=== PATIENT | male | born 1935 | race Caucasian/White ===

== ENCOUNTER 2016-09-26 08:35 | Day surgery (SDC) | payer OTHER ==
[2016-09-26] MEDS ORDERED: BACITRACIN IRRIGATION/NS 50,000 UNITS/1,000 ML BTL IRR ONE (08:38)
[2016-09-26] MEDS ORDERED: DIAZEPAM 5 MG TAB PO ONE (08:38)
[2016-09-26] MEDS ORDERED: ceFAZolin 2 GM/DEXTROSE 100 ML IV ONE (08:38)
[2016-09-26] MEDS ORDERED: NS 1,000 ML IV ONE (08:38)
[2016-09-26] MEDS ORDERED: diphenhydrAMINE 25 MG CAP PO ONE (08:38)
--- NOTE | 2016-09-26 08:59 | CPEKG ---
Heart Rate: 92 RR Interval: 652 QRSD Interval: 158 QT Interval: 432 QTC Interval: 535 QRS [place]: -78 T Wave [place]: 102 EKG Severity - ABNORMAL ECG - EKG Impression: AFIB/FLUTTER AND VENTRICULAR-PACED RHYTHM Electronically Signed By: Robert Carrion 26-Sep-2016 10:52:40
[2016-09-26 09:13] LABS: % IMMATURE GRANULYOCYTES 0.5 % (0.0-1.1); ABSOLUTE IMMATURE GRANULOCYTES 0.03 10^3/uL (0.00-0.10); ADD DIFF? NO; ADD MORPH? NO; ADD SCAN? NO; ATYPICAL LYMPHOCYTE FLAG 10 (0-99); FRAGMENT RBC FLAG 0 (0-99); HEMATOCRIT 40.7 % (40.0-51.0); HEMOGLOBIN 13.7 g/dL (13.7-17.5); LEFT SHIFT FLG 0 (0-99); LIPEMIA HEMOLYSIS FLAG 80 (0-99); MEAN CELL HEMOGLOBIN 36.2 pg (27.9-34.1); MEAN CELL HEMOGLOBIN CONCENTR. 33.7 g/dL (32.4-36.7); MEAN CELL VOLUME 107.7 fL (81.5-99.8); PLATELET CLUMPS FLAG 0 (0-99); PLATELET COUNT 130 10^3/uL (150-400); RED BLOOD CELL COUNT 3.78 10^6/uL (4.40-6.38); RED CELL DISTRIBUTION WIDTH 13.7 % (11.5-15.2)
[2016-09-26 09:24] LABS: INR 2.04 (0.83-1.16); PROTIME(PATIENT) 23.2 SEC (12.0-15.0)
[2016-09-26] MEDS ORDERED: LIDOCAINE 1% 30 ML SDV ONE ×2 (09:35→09:40)
[2016-09-26] MEDS ORDERED: fentaNYL 100 MCG/2 ML INJ ONE (09:36)
[2016-09-26] MEDS ORDERED: BUPIVACAINE 0.5% 30 ML SDV ONE (09:36)
[2016-09-26] MEDS ORDERED: MIDAZOLAM 2 MG/2 ML VIAL ONE (09:36)
[2016-09-26 09:41] LABS: ANION GAP 9 mEq/L (8-16); CALCIUM 9.3 mg/dL (8.5-10.4); CARBON DIOXIDE 27 mEq/l (22-31); CHLORIDE 108 mEq/L (97-110); CREATININE 1.4 mg/dL (0.7-1.3); GLOMERULAR FILTRATION RATE 49; GLUCOSE 85 mg/dL (70-100); POTASSIUM 4.4 mEq/L (3.5-5.2); SODIUM 144 mEq/L (134-144)
--- NOTE | 2016-09-26 11:44 | EPPROC ---
Electrophysiology Procedure Note: PROCEDURE PERFORMED: 1. Implantation of an A/V Pacemaker 2. Temporary pacemaker 3. Fluoroscopy PROCEDURE PERFORMED: 1. AV Pacemaker generator change INDICATION: Pacemaker generator at JONATHAN Atrial fibrillation with ventricular escape <30 bpm PROCEDURE NOTE: Patient presented to the cardiac catheterization laboratory in a fasting, postabsorptive state. CCL administered sedation. The left infraclavicular area was prepped and draped in the usual sterile fashion. Lidocaine plus bupivacaine was used for local anesthesia. Using a combination of blunt and sharp dissection and electrocautery, the dissection was carried down to the prepectoral fascia and the existing pacemaker pocket was opened. The pacemaker generator was disconnected from the lead and the lead threshold and impedance were checked. The pacemaker pocket was copiously irrigated with antibiotic solution. The pocket was again inspected for any bleeding. The lead was attached to the pacemaker securely. The pacemaker was inserted into the pocket. The pacemaker pocket was closed in 3 layers with absorbable monocryl sutures and darin. Appropriate dressing was applied. The patient left the cardiac catheterization laboratory in stable condition. Serial Numbers: 1. Device [employer] Etrinsa 8SRT SN [id number] 2. Ventricular Lead Medtronic [id number] Stimulation Thresholds & Impedance Measurements: 1. Ventricular Lead 0.8 V 0.4 ms 809 ohm no R waves Tu Pacing Parameters 1. Pacing mode VVI-CLS 2. Lower rate 70 ppm 3. Upper tracking rate 105 ppm Upper sensor rate 105 ppm Patient Problems: Problems Problem Status Diagnosed Atrial fibrillation and flutter Acute Fracture of neck of femur Acute Hypertension Acute Coronary arteriosclerosis Chronic
== END 2016-09-26 15:30 | disposition home or self-care (01) ==
LOC: FCATH 08:35
PROVIDERS: ATTEND Internal Medicine Cardiovascular Disease
PROC: 0JPT3PZ Removal of Cardiac Rhythm Related Device from Trunk Subcutaneous Tissue and Fascia, Percutaneous Approach (ICD-10-PCS; principal; 2016-09-26)
PROC: 0JH63PZ Insertion of Cardiac Rhythm Related Device into Chest Subcutaneous Tissue and Fascia, Percutaneous Approach (ICD-10-PCS; principal; 2016-09-26)
DX: Z45.010 Encounter for checking and testing of cardiac pacemaker pulse generator [battery] (principal); I48.2 Chronic atrial fibrillation; I48.92 Unspecified atrial flutter; I44.2 Atrioventricular block, complete
CPT/HCPCS: C1786; J0690; J1644; J2250; J3010

== ENCOUNTER → 2017-02-15 | Outpatient (CLI) | payer OTHER | LOC: FIMAGING 12:11 | PROVIDERS: ATTEND Surgery | DX: I65.23 Occlusion and stenosis of bilateral carotid arteries (principal) ==

== ENCOUNTER → 2018-01-23 | Outpatient (CLI) | payer OTHER ==
[~2018-01-23] MED LIST: IOPAMIDOL (ISOVUE-300) 100 ML BTL ONE
== END ==
LOC: FIMAGING 14:51
PROVIDERS: ATTEND Surgery
DX: K62.89 Other specified diseases of anus and rectum (principal); C21.0 Malignant neoplasm of anus, unspecified; K59.00 Constipation, unspecified; K57.30 Diverticulosis of large intestine without perforation or abscess without bleeding; I73.9 Peripheral vascular disease, unspecified; I77.1 Stricture of artery
CPT/HCPCS: 72193; Q9967

== ENCOUNTER 2018-01-24 10:20 | Emergency (ER) | payer OTHER ==
--- NOTE | 2018-01-24 10:40 | CPEKG ---
Heart Rate: 80 RR Interval: 750 QRSD Interval: 160 QT Interval: 456 QTC Interval: 527 QRS Beals: -85 T Wave Beals: 106 EKG Severity - ABNORMAL ECG - EKG Impression: ATRIAL-SENSED VENTRICULAR-PACED COMPLEXES EKG Impression: NONSPECIFIC IVCD WITH LAD EKG Impression: LVH WITH SECONDARY REPOLARIZATION ABNORMALITY Electronically Signed By: Aye Boswell 24-Jan-2018 14:38:41
--- NOTE | 2018-01-24 11:02 | EDPHY ---
H & P Stated Complaint: dizzy x yrs/fell hitting head and l side/no loc/denies neck pain/on coumadi Time Seen by Provider: 01/24/18 10:30 HPI/ROS: CHIEF COMPLAINT: Fall, left-sided rib pain HISTORY OF PRESENT ILLNESS: 82-year-old male with atrial fibrillation on Coumadin presents after a fall with left-sided rib pain. At 0 100 he awoke to go to the bathroom. He stood up and then fell, striking his head against the wall and his left side against the bed frame. He was able to get up unassisted and back into bed. He continues to have moderate left-sided chest pain, that increases with inspiration. REVIEW OF SYSTEMS: complete 10 point ROS negative except as noted in the HPI - Personal History Current Tetanus Diphtheria and Acellular Pertussis (TDAP): Yes Tetanus Vaccine Date: < 10 YEARS - Medical/Surgical History Hx Asthma: No Hx Chronic Respiratory Disease: Yes Hx Diabetes: No Hx Cardiac Disease: Yes Hx Renal Disease: No Hx Cirrhosis: No Hx Alcoholism: No Hx HIV/AIDS: No Hx Splenectomy or Spleen Trauma: No Other PMH: Afib, Hx of DVT, Hx of bypass (2002), implanted pacer, HTN, COPD. Hx of prostate CA in 2000, glaucoma, cataract sx, broken hip/replacement August 2013, anal cancer , syncopal episodes - Social History Smoking Status: Former smoker - Physical Exam Exam: General Appearance: Alert, pleasant Head: No scalp swelling or tenderness Eyes: No conjunctival erythema, PERRLA, EOMI ENT, Mouth: no oral trauma, no bony tenderness Neck: Nontender, range of motion without pain Respiratory: Normal inspection, left lateral chest wall tenderness, lungs clear bilaterally Cardiovascular: Regular rate and rhythm Abdomen: Abdomen is soft and nontender Skin: Skin tear left elbow Back: No midline T/L/S tenderness Extremities: Pelvis is stable and nontender; no extremity tenderness or deformity Neurological: A&Ox3, normal motor function, normal sensory exam, cranial nerves intact Psychiatric: Mood and affect normal Constitutional: Initial Vital Signs Temperature (C) 36.4 C 01/24/18 10:24 Heart Rate 79 01/24/18 10:24 Respiratory Rate 18 01/24/18 10:24 Blood Pressure 131/66 H 01/24/18 10:24 O2 Sat (%) 100 01/24/18 10:24 O2 Delivery Mode Room Air Allergies/Adverse Reactions: No Known Allergies Allergy (Verified 01/24/18 10:21) Home Medications: Medication Instructions Recorded Aspirin [Aspirin 81mg (*)] 81 mg PO DAILY 09/11/13 Cholecalciferol Vit D3 [Vitamin D3 1,000 units PO DAILY 09/11/13 (*)] Metoprolol Tartrate [Lopressor 25 25 mg PO BID 09/11/13 mg (*)] Sertraline HCl [Zoloft 25mg (*)] 25 mg PO DAILY 09/11/13 Simvastatin [Zocor 20 mg] 10 mg PO Q2D 09/11/13 Simvastatin [Zocor 20 mg] 20 mg PO Q2D 09/11/13 Bimatoprost 0.01% [Lumigan 0.01% 1 drops EACHEYE HS 06/27/14 (*)] Benazepril HCl [Lotensin (*)] 5 mg PO DAILY 08/11/14 Dorzolamide/Timolol [Cosopt (*)] 1 drops EACHEYE BID 08/11/14 Warfarin Sodium [Coumadin 2MG (*)] 2 mg PO SUMOTUWEFRSA@209902/08/15 Warfarin Sodium [Coumadin 4MG (*)] 4 mg PO TH@209902/08/15 Furosemide [Lasix 20 MG (*)] 10 mg PO Q2D 02/17/15 Furosemide [Lasix 20 MG (*)] 20 mg PO Q2D 02/17/15 Herbals/Supplements -Info Only 1 ea PO DAILY 02/17/15 Albuterol [Ventolin Hfa Inhaler] 2 puffs IH QID PRN #1 mdi 07/03/16 Ondansetron Odt [Zofran Odt] 4 mg PO Q4PRN PRN #20 tab 07/03/16 Medical Decision Making - Diagnostics EKG Interpretation: EKG interpreted by me reveals AV paced rhythm, rate 80. Interpretation: abnormal EKG Imaging Results: Chest X-Ray 01/24/18 10:59 Impression: 1. No acute posttraumatic abnormality identified. 2. Chronic cardiomegaly with prior CABG surgery, but without acute decompensation. Head CT 01/24/18 10:59 Impression: 1. No evidence of acute intracranial injury. 2. Stable atrophy and white matter small vessel disease. Findings were communicated by telephone with Dr. ELAYNE RAWLS at 01/24/2018 11: 42 Imaging: Discussed imaging studies w/ call centre supervisor Radiologist, I viewed and interpreted images myself ED Course/Re-evaluation: This pt presents after a probable mechanical fall. CXR: no rib fracture or pneumothorax and CT scan of the brain is unremarkable. Discussion with the patient admission versus discharge home. He has ongoing balance issues and uses a cane to walk. He declines admission and feels that he will be safe at home. Differential Diagnosis: Differential diagnosis includes though it is not limited to fracture, intracranial hemorrhage, pneumothorax, hemothorax, intra-abdominal hemorrhage. - Data Points Laboratory Results: Laboratory Results 01/24/18 10:42 01/24/18 10:42 Medications Given: Discontinued Medications Miscellaneous Medication (Icy Hot Lidocaine/Menthol 4%/1% Patch) 1 patch TD EDNOW ONE Stop: 01/24/18 12:09 Last Admin: 01/24/18 12:13 Dose: 1 patch Departure - Departure Disposition: Home, Routine, Self-Care Clinical Impression: Left rib fracture Qualifiers: Encounter type: initial encounter Rib fracture type: single rib Fracture type: closed Qualified Code(s): S22.32XA - Fracture of one rib, left side, initial encounter for closed fracture Condition: Good Instructions: Rib Fracture (ED) Additional Instructions: Your chest x-ray is normal. I suspect that you have a rib fracture. Take Tylenol 650 mg every 4 hr as needed for pain. You may use a lidocaine patch for pain. Use the incentive spirometer as directed. Referrals: Anen Espinoza MD [Primary Care Provider] - 2-3 days without fail
[2018-01-24 11:22] LABS: INR 2.71 (0.83-1.16); PROTIME(PATIENT) 28.7 SEC (12.0-15.0)
[2018-01-24 11:23] LABS: PLATELET COUNT 139 10^3/uL (150-400)
[2018-01-24 11:37] VITALS: BP 134/94
[2018-01-24] MEDS ORDERED: LIDOCAINE 4%/MENTHOL 1% PATCH TD ONE (12:08)
--- NOTE | 2018-01-24 14:03 | ASMTCMCOM ---
CM Note CM Note Notes: Met with patient briefly prior to discharge from ER today. Patient lives independently in affordable housing in [facility] and is socially active. He has a history of syncopal episodes and falls, and is anticoagulated with a pacemaker. He is no longer driving and has VIA available at his residence for transportation needs. I discussed possible support from [facility] and patient is receptive to this. I have called Joce at [facility] who will reach out to patient and determine what resources may be beneficial and available to patient. I have alerted patient's PCP, Anne Parkinson of ER visit as well Date Signed: 01/24/2018 02:01 PM Electronically Signed By:Adina Avila RN
[2018-01-24] MEDS ORDERED: PATCH REMOVAL 1 EA PATCH TD SCH (21:00)
== END 2018-01-24 12:30 | disposition home or self-care (01) ==
DX: S22.32XA Fracture of one rib, left side, initial encounter for closed fracture (principal); I10 Essential (primary) hypertension; J44.9 Chronic obstructive pulmonary disease, unspecified; Z85.46 Personal history of malignant neoplasm of prostate; Z87.891 Personal history of nicotine dependence; Z79.82 Long term (current) use of aspirin; Z79.01 Long term (current) use of anticoagulants; W01.198A Fall on same level from slipping, tripping and stumbling with subsequent striking against other object, initial encounter

== ENCOUNTER 2018-02-16 07:38 | Day surgery (SDC) | payer OTHER ==
--- NOTE | 2018-02-14 16:07 | GHP ---
[f rep st] PREOP HISTORY AND PHYSICAL DATE OF ADMISSION: 02/16/2018 CHIEF COMPLAINT: Hemorrhoids. 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 He developed a rectal mass in November. The bulge santoro and itches. It is more painful when he needs to urinate and radiates anteriorly. The pain is relieved after urination. He denies sharp pain. He denies bleeding. Denies any changes in size. He denies constipation or diarrhea. PAST MEDICAL HISTORY: History of anal cell cancer, aortic aneurysm, infrarenal 2.8 cm in 2011, atrial fibrillation, pacemaker, cardiomyopathy, carotid artery disease, history of prostate cancer, hyperlipidemia, hypertension. PAST SURGICAL HISTORY: Ablation, wide local excision anus, carotid endarterectomy, coronary bypass surgery, hip replacement, pacemaker, tonsillectomy, adenoidectomy. MEDICATIONS: Reviewed. I have asked him to discontinue his warfarin 5 days prior to surgery. ALLERGIES: Guaifenesin, phenylephrine, malaria medications that he received in the [employer], typhoid vaccination. FAMILY HISTORY: Breast cancer, heart disease, hypertension, myelodysplasia, stroke. SOCIAL HISTORY: He quit smoking in 1979. He exercises. REVIEW OF SYSTEMS: 10-point review of systems negative, except per HPI. PHYSICAL EXAMINATION: GENERAL: Pleasant, well-nourished, well-groomed man in no acute distress. HEENT: Normocephalic. No gross hearing deficits. Mucous membranes moist. Pupils equal and round. No scleral icterus. LUNGS: No increased work of breathing. Clear to auscultation bilaterally. CARDIAC: No peripheral edema. Pacer. RECTAL: External rectal exam with a nodular area originating internally and extending externally in the right posterolateral anus. Significant anal stenosis. SKIN: Warm and dry. MUSCULOSKELETAL: Normal gait. Normal nails. PSYCH: Mood and affect normal. NEURO: Grossly intact. IMPRESSION/PLAN: 82-year-old man with history of squamous cell carcinoma of the anus with a new anal mass. He could not get an MRI due to his pacer. He had a CT scan, which showed mild thickening of the anus. No pelvic or perianal adenopathy. There is constipation, radiation seed implants in the prostate gland. The bladder was grossly unremarkable. We will proceed with excising the mass, getting a diagnosis. /[id number]/MODL MTDD
[~2018-02-16 07:38] MED LIST changes: -IOPAMIDOL (ISOVUE-300) 100 ML BTL ONE; +LR 1,000 ML IV ONE; +cefOXitin SODIUM 2 GM in NS 100 ML IV ONE
[2018-02-16] MEDS ORDERED: BUPIVACAINE/EPI 0.5% 30 ML SDV ONE (08:10)
--- NOTE | 2018-02-16 08:33 | PDHPUP ---
History & Physical Update H&P update statement: This history and physical update is based on an assessment of the patient which was completed after admission or registration (within 24 hours), but prior to the surgery/procedure. H&P update: H&P reviewed & patient examined, no change in patient's condition since H&P completed
[2018-02-16] MEDS ORDERED: MIDAZOLAM 2 MG/2 ML VIAL IVP ONE (08:36)
--- NOTE | 2018-02-16 08:39 | PDANEPAE ---
ANE History of Present Illness 82 year old with rectal mass ANE Past Medical History - Cardiovascular History Hx Hypertension: Yes Hx Arrhythmias: Yes Hx Coronary Artery / Peripheral Vascular Disease: Yes Hx CHF / Valvular Disease: No Hx Palpitations: No Cardiovascular History Comment: Afib, CABG, PVD. Aortic aneurysm-being watched. cardiomyopathy. carotid artery disease. EF 35-40% - Pulmonary History Hx COPD: No Hx Asthma/Reactive Airway Disease: No Hx Recent Upper Respiratory Infection: No Hx Oxygen in Use at Home: No Hx Sleep Apnea: Yes Sleep Apnea Screening Result - Last Documented: Positive Pulmonary History Comment: HX sleep apnea. Can't use CPAP. pt states intermittent SOB uses inhaler - Neurologic History Hx Cerebrovascular Accident: No Hx Seizures: No Hx Dementia: No Neurologic History Comment: hx of intracerebral hemorrage - Endocrine History Hx Diabetes: No - Renal History Hx Renal Disorders: No Renal History Comment: Prostatate CA. - Liver History Hx Hepatic Disorders: No - Neurological & Psychiatric Hx Hx Neurological and Psychiatric Disorders: Yes Neurological / Psychiatric History Comment: balance issues. depression,anxiety - Cancer History Hx Cancer: Yes Cancer History Comment: Prostate-radiation seeds 1999. Basal cell top of head- removed. - Congenital Disorder History Hx Congenital Disorders: No - GI History Hx Gastrointestinal Disorders: Yes Gastrointestinal History Comment: 07/04-rectal bleeding. Has mass. - Other Health History Other Health History: Macular degeneration-on meds. Mild arthritis in joints. ABX for dental procedures due to artificial hip. Bruise easily due to warfarin. thrombocytopenia. glaucoma - Chronic Pain History Chronic Pain: No - Surgical History Prior Surgeries: 09/03-R hip plasty. 2004-remove DVT R leg. Bilateral cataracts. 2002-4 vessel CABG. 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: [employer] Pacemaker Model: Etrinsa 8SR-T Pacemaker Mode: VVI-CLS Date Pacemaker Last Checked: 01/25/18 ANE Patient History - Allergies Allergies/Adverse Reactions: No Known Allergies Allergy (Verified 02/13/18 10:52) - Home Medications Home medications: home medication list seen and reviewed Home Medications: Albuterol [Proventil Inhaler HFA (*)] 1 - 2 puffs IH Q4H PRN 02/13/18 [Last Taken 01/19/18] Aspirin [Aspirin 81mg (*)] 81 mg PO DAILY 02/13/18 [Last Taken 02/11/18] Benazepril HCl 5 mg PO DAILY 02/13/18 [Last Taken 02/15/18] Bimatoprost 0.01% [Lumigan 0.01% (*)] 1 drops EACHEYE HS 02/13/18 [Last Taken 06:00] C/E/Zn/Cu/OM3/DHA/EPA/LUT/ZEAX [Preservision Areds 2 Softgel] 1 each PO DAILY [Last Taken Unknown] Cholecalciferol Vit D3 [Vitamin D3 (*)] 1,000 units PO DAILY 02/13/18 [Last Taken 02/11/18] Dorzolamide/Timolol [Cosopt (*)] 1 drops EACHEYE BID 02/13/18 [Last Taken 06:00] Furosemide [Lasix 20 MG (*)] 20 mg PO DAILY 02/13/18 [Last Taken 02/15/18] Melatonin [Melatonin 3 MG (*)] 3 mg PO HS 02/13/18 [Last Taken 02/14/18] Metoprolol Tartrate [Lopressor 25 mg (*)] 25 mg PO DAILY 02/13/18 [Last Taken 20:00] Sertraline HCl [Zoloft 25mg (*)] 25 mg PO DAILY 02/13/18 [Last Taken 02/16/18 05 :00] Simvastatin [Zocor] 10 mg PO DAILY 02/13/18 [Last Taken 02/15/18] Simvastatin [Zocor] 10 mg PO Q2D 02/13/18 [Last Taken 02/15/18] Warfarin Sodium [Coumadin 2MG (*)] 2 mg PO SUMOTUWEFRSA@02/13/18 [Last Taken 02/11/18] Warfarin Sodium [Coumadin 2MG (*)] 4 mg PO TH@16 02/13/18 [Last Taken 02/11/18] - NPO status NPO Since - Liquids (Date): 02/15/18 NPO Since - Liquids (Time): 17:00 NPO Since - Solids (Date): 02/15/18 NPO Since - Solids (Time): 17:00 - Smoking Hx Smoking Status: Former smoker - Alcohol Use Alcohol Use: Occasionally - Family Anes Hx Family Hx Anesthesia Complications: none ANE Labs/Vital Signs - Vital Signs Blood Pressure: 157/89 Heart Rate: 85 Respiratory Rate: 16 O2 Sat (%): 96 Height: 171.45 cm Weight: 72.575 kg ANE Physical Exam - Airway Neck exam: FROM Mallampati Score: Class 1 Mouth exam: normal dental/mouth exam - Pulmonary Pulmonary: no respiratory distress, clear to auscultation - Cardiovascular Cardiovascular: regular rate and rhythym - ASA Status ASA Status: II ANE Anesthesia Plan Anesthesia Plan: GA w LMA
[2018-02-16] MEDS ORDERED: MIDAZOLAM 2 MG/2 ML VIAL ONE (08:45)
[2018-02-16 08:49] LABS: INR 1.95 (0.83-1.16); PROTIME(PATIENT) 22.3 SEC (12.0-15.0)
[2018-02-16] MEDS ORDERED: PROPOFOL 200 MG/20 ML VIAL ONE (08:53)
[2018-02-16] MEDS ORDERED: fentaNYL 100 MCG/2 ML INJ ONE (08:53)
[2018-02-16] MEDS ORDERED: LIDOCAINE 2% 5 ML SDV ONE (08:53)
[2018-02-16] MEDS ORDERED: THROMBIN (BOVINE) 5,000 UNIT VIAL TP ONE (09:02)
[2018-02-16] MEDS ORDERED: PROMETHAZINE HCL 25 MG/ML INJ IVP PRN (09:28)
[2018-02-16] MEDS ORDERED: NALOXONE HCL 0.4 MG/ML INJ IVP PRN (09:28)
[2018-02-16] MEDS ORDERED: ONDANSETRON 4 MG/2 ML VIAL IVP PRN (09:28)
[2018-02-16] MEDS ORDERED: fentaNYL 100 MCG/2 ML INJ IVP PRN (09:28)
--- NOTE | 2018-02-16 09:35 | POSTOPPROG ---
Post Op Note Date of Operation: 02/16/18 Surgeon: Leanna Milligan Anesthesiologist: warm Anesthesia: GET(General Endotracheal) Pre-op Diagnosis: anal mass with history of anal cancer Post-op Diagnosis: same Indication: 82 yo with anal mass and history of anal cancer Procedure: eua and excision of anal mass Findings: 5x2 cm mass Inf/Abcess present in the surg proc area at time of surgery?: No Specimen(s): anal mass
--- NOTE | 2018-02-16 09:50 | POSTANESTH ---
Post Anesthetic Evaluation Cardiovascular Status: Normal, Stable Respiratory Status: Normal, Stable Level of Consciousness/Mental Status: Mildly Sleepy, Arousable Pain Control: Adequate, Prn Tx Ordered Nausea/Vomiting Control: Adequate, Prn Tx Ordered Complications Possibly Related to Anesthesia: None Noted
--- NOTE | 2018-02-16 10:00 | GOP ---
[f rep st] OPERATIVE REPORT DATE OF OPERATION: 02/16/2018 SURGEON: Leanna Milligan MD ANESTHESIOLOGIST: Ron Pride MD/General. PREOPERATIVE DIAGNOSIS: Anal mass with history of anal cancer. POSTOPERATIVE DIAGNOSIS: Anal mass with history of anal cancer. PROCEDURE PERFORMED: Exam under anesthesia and excision of anal mass, 5 x 3 cm. FINDINGS: Ulceration along the right posterolateral wall with firm nodularity. SPECIMENS: Anal mass in fragments. ESTIMATED BLOOD LOSS: 5 cc. INDICATIONS: The patient is an 82-year-old man with history of anal cancer status post excision and radiation. He presented with a new bleeding mass. He had also stenosis. He is on warfarin. Due to the extent of the lesion I decided to proceed in the operating room. DESCRIPTION OF PROCEDURE: Patient was brought into the operating room, placed supine on the table and general anesthesia was administered. His bottom was prepped and draped in the usual sterile fashion. He was placed in a lithotomy position. I infiltrated the area with 0.5% Marcaine with epinephrine prior to making incisions. I performed my exam under anesthesia. The lesion was at least 5 cm into the anal canal. With electrocautery I excised this lesion. It was very friable. It came out in fragments. Hemostasis achieved. I closed the defect with 3-0 Vicryl. ABD mesh pants applied. He was taken out of lithotomy position, awakened in the operating room, extubated, transferred to PACU in stable condition. /[id number]/MODL MTDD
[2018-02-16 11:51] VITALS: BP 150/77
--- NOTE | 2018-03-13 18:01 | GDS ---
[f rep st] DISCHARGE SUMMARY The patient is an 82-year-old male with a history of anal cancer, presented for exam under anesthesia to assess rectal bleeding, was bridged. Found a mass 5 cm into rectal canal, resected mass. The jabier antonieta was then sent to PACU and monitored before discharge, left in a wheelchair with family. Diet a s tolerates. Pain controlled. /[id number]/MODL
== END 2018-02-16 12:11 | disposition home or self-care (01) ==
LOC: F3N 07:38 → FSGY 07:38 → UNDOADMOB 07:38 → EDSTATUS 08:30 → FSGY 12:11 → UNDODISOB 12:11
PROVIDERS: ATTEND Surgery
PROC: 0DBQ7ZX Excision of Anus, Via Natural or Artificial Opening, Diagnostic (ICD-10-PCS; principal; 2018-02-16 08:30)
DX: C21.1 Malignant neoplasm of anal canal (principal); I48.91 Unspecified atrial fibrillation
CPT/HCPCS: 46922; 88305; J0694; J2250; J2704; J3010

== ENCOUNTER → 2018-05-09 | Outpatient (CLI) | payer OTHER | LOC: BHFA 08:30 | PROVIDERS: ATTEND Internal Medicine Cardiovascular Disease | DX: Z01.818 Encounter for other preprocedural examination (principal); I25.10 Atherosclerotic heart disease of native coronary artery without angina pectoris | CPT/HCPCS: 78452; 93017; A9500; J2785 ==

== ENCOUNTER 2018-06-01 05:48 | Inpatient (IN) | payer OTHER ==
--- NOTE | 2018-05-28 09:30 | GHP ---
DATE OF ADMISSION: 06/01/2018 DATE OF SURGERY: 06/01/2018 PREOPERATIVE DIAGNOSIS: Recurrent anal cancer. HISTORY OF PRESENT ILLNESS: The patient is an 83-year-old man with a history of anal cancer, status post chemo and radiation. He underwent excision of an anal mass over the summer, which showed squamo us cell carcinoma at multiple margins. He had a PET-CT on 03/12/2018, which showed a left adrenal ad enoma unchanged since 2014, esophagitis versus reflux in the distal esophagus, subacute rib fractures of the posterior left 4th through 11th ribs are also indicated. No evidence of metastatic disease i n the chest, abdomen, or pelvic nodes. At this time, he presents for APR. PAST MEDICAL HISTORY: Anal cancer, aortic aneurysm, arterial embolism to the leg, atrial fibrillatio n on Coumadin, pacemaker for syncope, cardiomyopathy, carotid artery disease, coronary artery disease , history of prostate cancer, hyperlipidemia, hypertension, macular degeneration, thrombocytopenia, v ertebral artery disease. PAST SURGICAL HISTORY: Cardiac ablation for atrial fibrillation. Resection of anal cancer 2013, car otid endarterectomy, 2014, coronary bypass surgery, hip replacement, pacemaker placement, tonsillecto my, and adenoidectomy. ALLERGIES: Guaifenesin, quinine, typhoid vaccine. FAMILY HISTORY: Significant for stroke, heart disease, hypertension, breast cancer, myelodysplasia. SOCIAL HISTORY: He reports drinking alcohol 2 times per week. 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 He is a former smoker. No recreational drug use. REVIEW OF SYSTEMS: Ten-point review of systems negative aside from HPI. PHYSICAL EXAMINATION: GENERAL: A pleasant, well-developed, well-nourished man in no acute distress. HEENT: Normocephalic, atraumatic. No hearing deficits. Pupils equal and round. No scleral icter us. Mucous membranes moist. NECK: Trachea midline. RESPIRATORY: No increased work of breathing. Clear to auscultation bilaterally. CARDIOVASCULAR: No peripheral edema. ABDOMEN: Soft, nondisten ded, nontender. PSYCHIATRIC: Mood and affect normal. NEUROLOGIC: Grossly intact. IMPRESSION AND PLAN: An 83-year-old man with recurrent anal cancer, now presenting for APR. Discuss ed permanent colostomy. We discussed risks of surgery, including but not limited to, heart attack, s troke, blood clots, or . We discussed risks of infection, bleeding, damage to surrounding struc tures, anastomotic leak, or delayed wound healing. He understands risks and would like to proceed. It will be an inpatient procedure. He will receive cefoxitin. I will call the operating room. /[id number]/MODL
[2018-06-01] MEDS ORDERED: cefOXitin SODIUM 2 GM in NS 100 ML IV ONE (06:00)
[2018-06-01] MEDS ORDERED: LR 1,000 ML IV ONE (06:07)
--- NOTE | 2018-06-01 07:08 | POSTANESTH ---
Post Anesthetic Evaluation Cardiovascular Status: Normal, Stable Respiratory Status: Normal, Stable Level of Consciousness/Mental Status: Can Participate in Eval, Moderately Sleepy Pain Control: Adequate, Prn Tx Ordered Nausea/Vomiting Control: Adequate, Prn Tx Ordered Complications Possibly Related to Anesthesia: None Noted
[2018-06-01 07:09] LABS: INR 1.59 (0.83-1.16); PROTIME(PATIENT) 19.1 SEC (12.0-15.0)
[2018-06-01] MEDS ORDERED: ALBUTEROL 3 ML DEYVIAL IH ONE (07:09)
[2018-06-01] MEDS ORDERED: ALBUTEROL 3 ML DEYVIAL ONE (07:11)
--- NOTE | 2018-06-01 07:12 | PDANEPAE ---
ANE History of Present Illness 83 yo male with anal cancer for abdominoperineal resection. ANE Past Medical History - Cardiovascular History Hx Hypertension: Yes Hx Arrhythmias: Yes Hx Chest Pain: No Hx Coronary Artery / Peripheral Vascular Disease: Yes Hx CHF / Valvular Disease: No Hx Palpitations: No Cardiovascular History Comment: aortic aneurysm. afib - chronic. pacemaker for complete heart block. cardiomyopathy. CAD s/p CABG in 2000. htn. hyperlipidemia. pvd. hx of cabg. followed by [facility] - Pulmonary History Hx COPD: No Hx Asthma/Reactive Airway Disease: Yes Hx Recent Upper Respiratory Infection: No Hx Oxygen in Use at Home: No Hx Sleep Apnea: Yes Sleep Apnea Screening Result - Last Documented: Positive Pulmonary History Comment: hx of ЕЛЕНА, pt denies dx or using cpap. no ER visits for RAD, uses inhaler 1-2/d - Neurologic History Hx Cerebrovascular Accident: No Hx Seizures: No Hx Dementia: No Neurologic History Comment: hx of intracerebral hemorrage - Endocrine History Hx Diabetes: No Obesity: no - Renal History Hx Renal Disorders: No Renal History Comment: h/o Prostate CA - Liver History Hx Hepatic Disorders: No - Neurological & Psychiatric Hx Hx Neurological and Psychiatric Disorders: Yes Neurological / Psychiatric History Comment: depression. anxiety - Cancer History Hx Cancer: Yes Cancer History Comment: rectal ca. Prostate-radiation seeds 1999. Basal cell top of head-removed - Congenital Disorder History Hx Congenital Disorders: No - GI History Hx Gastrointestinal Disorders: Yes Gastrointestinal History Comment: rectal CA - Other Health History Other Health History: macular degeneration. wears glasses - Chronic Pain History Chronic Pain: No - Surgical History Prior Surgeries: 02/16/18 rectal mass excision with Srini. 02/17/15 left CEA with Dayron. 06/27/14 rectal exam with excision of anal CA with Srini. right TANK with Shoshana. 2004-remove DVT R leg. 11/30/09 EP study/ ablation with Murali. Bilateral cataracts. 2002-4 vessel CABG ANE Review of Systems Review of Systems: - Exercise capacity METS (RN): 3 METS - Systems Constitutional: Reports: other (fatigue over past few months) - Pacemaker Pacemaker Type: Permanent Pacer/Defib Pacemaker Tubular Stock Glass Bulb Machine Former: [employer] Pacemaker Model: Etrinsa 8 SR-T Pacemaker Mode: VVI-CLS Pacemaker Set Rate: 70 Date Pacemaker Last Checked: 05/04/18 ANE Patient History - Allergies Allergies/Adverse Reactions: No Known Allergies Allergy (Verified 05/28/18 17:00) - Home Medications Home Medications: Albuterol [Proventil Inhaler HFA (*)] 1 - 2 puffs IH Q4H PRN 02/13/18 [Last Taken 05/31/18] Aspirin [Aspirin 81mg (*)] 81 mg PO DAILY 02/13/18 [Last Taken 05/31/18] Benazepril HCl 5 mg PO DAILY 02/13/18 [Last Taken 05/31/18] Bimatoprost 0.01% [Lumigan 0.01% (*)] 1 drops EACHEYE HS 02/13/18 [Last Taken ] C/E/Zn/Cu/OM3/DHA/EPA/LUT/ZEAX [Preservision Areds 2 Softgel] 1 each PO DAILY [Last Taken 05/31/18] Cholecalciferol Vit D3 [Vitamin D3 (*)] 1,000 units PO DAILY 02/13/18 [Last Taken 05/31/18] Dorzolamide/Timolol [Cosopt (*)] 1 drops EACHEYE BID 02/13/18 [Last Taken ] Furosemide [Lasix 20 MG (*)] 20 mg PO DAILY 02/13/18 [Last Taken 05/31/18] Metoprolol Tartrate [Lopressor 25 mg (*)] 25 mg PO DAILY 02/13/18 [Last Taken ] Sertraline HCl [Zoloft 25mg (*)] 25 mg PO DAILY 02/13/18 [Last Taken 06/01/18] Simvastatin [Zocor] 10 mg PO Q2D 02/13/18 [Last Taken 05/31/18] Simvastatin [Zocor] 20 mg PO Q2D 02/13/18 [Last Taken 06/01/18] Warfarin Sodium [Coumadin 2MG (*)] 2 mg PO DAILY@1600 02/13/18 [Last Taken 05/28] Melatonin/Pyridoxine [Melatonin 5 mg Tablet] 1 each PO HS 05/18/18 [Last Taken 1 Week Ago ~05/25/18] Simvastatin 10 mg PO Q2D 05/18/18 [Last Taken Unknown] - NPO status NPO Since - Liquids (Date): 05/31/18 NPO Since - Liquids (Time): 20:00 NPO Since - Solids (Date): 05/31/18 NPO Since - Solids (Time): 20:00 - Anes Hx Anes Hx: no prior problems - Smoking Hx Smoking Status: Former smoker - Family Anes Hx Family Anes Hx: neg - N/A Family Hx Anesthesia Complications: none ANE Labs/Vital Signs - Labs - CBC HGB: 13 HCT: 40 Platelet Count: 146 - Labs - BMP Potassium: 4.4 Creatinine: 1.3 - Vital Signs Vital Signs: reviewed preoperatively; see RN documention for details Height: 171.45 cm Weight: 70.307 kg ANE Physical Exam - Airway Neck exam: decreased ROM Mallampati Score: Class 2 - Pulmonary Pulmonary: expiratory wheeze - Cardiovascular Cardiovascular: regular rate and rhythym - ASA Status ASA Status: III ANE Anesthesia Plan Anesthesia Plan: general endotracheal anesthesia Lines/Monitors: additional IV
[2018-06-01] MEDS ORDERED: ROCURONIUM 100 MG/10 ML VIAL ONE (07:25)
[2018-06-01] MEDS ORDERED: LIDOCAINE 0.5% 50 ML SDV ONE ×3 (07:25→10:53)
[2018-06-01] MEDS ORDERED: DEXAMETHASONE 4 MG/ML VIAL ONE (07:25)
[2018-06-01] MEDS ORDERED: PROPOFOL/EMULSION 500 MG/50 ML BOTTLE IV ONE ×4 (07:25→10:51)
[2018-06-01] MEDS ORDERED: fentaNYL 250 MCG/5 ML INJ ONE (07:25)
[2018-06-01] MEDS ORDERED: BUPIVACAINE 0.5% 30 ML SDV ONE (07:51)
--- NOTE | 2018-06-01 09:33 | POSTOPPROG ---
Post Op Note Date of Operation: 06/01/18 Surgeon: Best Merino (# [id number]) Anesthesia: GET(General Endotracheal) Pre-op Diagnosis: Urinary retention, inability to catheterize Post-op Diagnosis: Urinary retention, inability to catheterize Procedure: Urethral dilation under anesthesia, complex urethral catheterization Findings: Probable bladder neck contracture Inf/Abcess present in the surg proc area at time of surgery?: No EBL: Minimal Complications: None
--- NOTE | 2018-06-01 10:29 | GOP ---
DATE OF OPERATION: 06/01/2018 SURGEON: Best Merino MD PREOPERATIVE DIAGNOSIS: Urinary retention, inability to catheterize under anesthesia. POSTOPERATIVE DIAGNOSIS: Urinary retention, inability to catheterize under anesthesia. PROCEDURE PERFORMED: 1. Urethral dilation with filiforms and followers under anesthesia. 2. Complex urethral catheterization. FINDINGS: Urethral stricture disease, probable bladder neck contracture. INDICATIONS: This is an 83-year-old gentleman who is under anesthesia in preparation for a robotically-assisted abdominoperineal resection by Dr. Damian. Attempts to place a Peck catheter intraoperatively under anesthesia were unsuccessful. I was asked to see the patient as a result. According to review of records, it appears the patient has undergone prostate brachytherapy for cancer treatment in the past. There is no additional history available at this time. DESCRIPTION OF PROCEDURE: The patient was already under anesthesia in the low lithotomy position upon my arrival. Dr. Damian was in the process of attempting to place a 14-Nigerian coude tipped catheter, but resistance was encountered and what appeared to be the posterior urethra and possibly bladder neck. I then proceeded to perform urethral dilation with filiforms and followers, starting with a 4-Nigerian straight tip filiform, followed by progressive dilation from 10- Nigerian to 18-Nigerian with followers. I then slowly advanced a 14-Nigerian coude tip catheter and was able to get it into the bladder with some resistance noted in the prostatic urethra and possibly the bladder neck. There was return of clear urine. The catheter was connected to bag drainage. The patient was then turned over to the General Surgery team for the scheduled procedure. DISPOSITION: Status post successful complex urethral catheterization following urethral dilation. The Peck catheter may be removed whenever deemed appropriate by the attending service. /[id number]/MODL MTDD
[2018-06-01] MEDS ORDERED: ALBUTEROL 3 ML DEYVIAL IH PRN (11:58)
[2018-06-01] MEDS ORDERED: PROMETHAZINE HCL 25 MG/ML INJ IVP PRN (11:58)
[2018-06-01] MEDS ORDERED: fentaNYL 100 MCG/2 ML INJ IVP PRN (11:58)
[2018-06-01] MEDS ORDERED: NALOXONE HCL 0.4 MG/ML INJ IVP PRN (11:58)
[2018-06-01] MEDS ORDERED: LR 500 ML IV PRN (11:58)
[2018-06-01] MEDS ORDERED: ONDANSETRON 4 MG/2 ML VIAL ONE (12:03)
--- NOTE | 2018-06-01 12:04 | POSTOPPROG ---
Post Op Note Date of Operation: 06/01/18 Surgeon: Leanna Milligan Cabinet Abrasive Sandblaster: evan Anesthesiologist: azeem Anesthesia: GET(General Endotracheal) Pre-op Diagnosis: recurrent anal ca Post-op Diagnosis: same, diverticulosis Indication: 83yo M with anal ca s/p chemo and radiation with recurrence Procedure: Davinci APR with end colostomy. Findings: diverticulosis. Inf/Abcess present in the surg proc area at time of surgery?: No EBL: 50-100 Complications: none immediately postoperatively Drains: Evens Birch, Wound Vac Specimen(s): rectum and anus
[2018-06-01] MEDS ORDERED: GLYCOPYRROLATE 0.2 MG/1 ML VIAL ONE (12:08)
[2018-06-01] MEDS ORDERED: diphenhydrAMINE 25 MG CAP PO PRN (12:08)
[2018-06-01] MEDS ORDERED: NEOSTIGMINE METHYLSULFATE 5 MG/5 ML SYR ONE (12:08)
[2018-06-01] MEDS ORDERED: ONDANSETRON 4 MG/2 ML VIAL IVP PRN (12:08)
[2018-06-01] MEDS ORDERED: HYDROmorphONE/DILAUDID 1 MG/ML INJ IVP PRN (12:08)
[2018-06-01] MEDS ORDERED: HYDROCODONE/APAP 5/325 TAB PO PRN (12:08)
--- NOTE | 2018-06-01 12:46 | PDMN ---
Medical Necessity Medical necessity: [facility] IP only surgery; cpt 89819 Abdominoperineal Resection
[2018-06-01] MEDS: cefOXitin SODIUM 2 GM in NS 100 ML IV SCH (19:00)
[2018-06-01] MEDS: DORZOLAMIDE 2% EACHEYE SCH (20:27)
[2018-06-01] MEDS: BIMATOPROST 0.01% 2.5 ML OPHT.BTL EACHEYE SCH (20:27)
[2018-06-01] MEDS: EYE EACHEYE SCH (20:27)
[2018-06-01] MEDS: MELATONIN 3 MG TAB PO SCH (20:27)
[2018-06-01] MEDS ORDERED: DORZOLAMIDE/TIMOLOL 10 ML OPHT.BTL EACHEYE SCH (21:00)
[2018-06-02] MEDS: cefOXitin SODIUM 2 GM in NS 100 ML IV SCH (00:55)
[2018-06-02 06:17] LABS: PLATELET COUNT 113 10^3/uL (150-400)
[2018-06-02] MEDS: NS 1,000 ML IV SCH (07:17)
[2018-06-02] MEDS: ACETAMINOPHEN 325 MG TAB PO PRN (09:23)
[2018-06-02] MEDS: PRAVASTATIN SODIUM 10 MG TAB PO SCH ×2 (09:24→18:14)
[2018-06-02] MEDS: METOPROLOL TARTRATE 25 MG TAB PO SCH (09:30)
[2018-06-02] MEDS: EYE EACHEYE SCH ×2 (09:30→19:59)
[2018-06-02] MEDS: DORZOLAMIDE 2% EACHEYE SCH ×2 (09:30→19:59)
[2018-06-02] MEDS: BENAZEPRIL HCL 10 MG TAB PO SCH (09:30)
[2018-06-02] MEDS: SERTRALINE HCL 25 MG TAB PO SCH (10:06)
[2018-06-02] MEDS: HYDROCODONE/APAP 5/325 TAB PO PRN ×2 (12:05→19:57)
--- NOTE | 2018-06-02 12:42 | SOAPPROG ---
SOAP Progress Note Assessment/Plan: Assessment: 83 year old s/p APR for recurrent anal cancer Pain controlled with Tylenol Has gas and stool in appliance Will start clear liquids Atrial Fibrillation Holding Warfarin and monitoring H.H Pacemaker Hyperlipidemia Home statin Hypertension Holding PAWEL and B Aramis due to hypotension Hypotension BP stable. Will monitor Urethral Stricture Appreciate Dr. ahuja assisting with Peck. Will keep Peck about 5 days due to APR. No special cares per Wilber S: Dry mouth and some vision changes. Feels weak O: Lying in bed, good spirits but appears tired CTAB Paced BS present, soft, Incisions cdi Gas and stool in appliance Prevena vac intact Plan: 06/02/18 12:38 Objective: Vital Signs Temp Pulse Resp BP Pulse Ox 36.4 C 90 17 97/41 L 94 06/02/18 08:00 06/02/18 12:00 06/02/18 12:00 06/02/18 12:00 06/02/18 12:00 Laboratory Results 06/02/18 05:46 06/02/18 05:46 06/01/18 06/02/18 06/03/18 05:59 05:59 05:59 Intake Total 2565 Output Total 1120 Balance 1445 PT 19.1 SEC (12.0-15.0) H 06/01/18 06:50 INR 1.59 (0.83-1.16) H 06/01/18 06:50 ICD10 Worksheet Patient Problems: Problems Problem Status Onset Atrial fibrillation and flutter Acute Fracture of neck of femur Acute Hypertension Acute Left rib fracture Acute Coronary arteriosclerosis Chronic
--- NOTE | 2018-06-02 16:26 | ASMTCMCOM ---
CM Note CM Note Notes: CM reviewed pt's chart for d/c planning. Pt is a 83 y/o male with diagnosis of urethral stricture disease and probable bladder neck contracture. He had a urethral catheterization following urethral dialation. When pt was in the ED in January he reported that he lived independently in low income housing and was socailly active. He accepted a referral for [facility]; CM reached out to [facility] and gave pt's contact information. It is unknown whether pt followed through with this. CM to follow. D/C Plan: TBD Date Signed: 06/02/2018 04:25 PM Electronically Signed By:Lola Rosen
[2018-06-02] MEDS: BIMATOPROST 0.01% 2.5 ML OPHT.BTL EACHEYE SCH (19:58)
[2018-06-02] MEDS: MELATONIN 3 MG TAB PO SCH (19:58)
[2018-06-03] MEDS: HYDROCODONE/APAP 5/325 TAB PO PRN ×2 (00:47→05:34)
[2018-06-03 06:40] LABS: PLATELET COUNT 91 10^3/uL (150-400)
[2018-06-03] MEDS ORDERED: NON-FORMULARY NEW DRUG (Simvastatin [Zocor] 20 MG) PO SCH (09:00)
[2018-06-03] MEDS: SERTRALINE HCL 25 MG TAB PO SCH (09:44)
[2018-06-03] MEDS: EYE EACHEYE SCH ×2 (09:45→20:34)
[2018-06-03] MEDS: DORZOLAMIDE 2% EACHEYE SCH ×2 (09:45→20:34)
--- NOTE | 2018-06-03 13:43 | GOP ---
DATE OF OPERATION: 06/01/2018 SURGEON: Leanna Milligan MD SENIOR APPLICATION SOFTWARE ENGINEER: AVIVA Lewis ANESTHESIA: General ANESTHESIOLOGIST: Sarika Whitaker MD PREOPERATIVE DIAGNOSIS: Recurrent anal cancer. POSTOPERATIVE DIAGNOSIS: Recurrent anal cancer. PROCEDURE PERFORMED: Da Alessandra abdominoperineal resection. FINDINGS: Diverticulosis and urethral stricture. SPECIMENS: Rectum and anus. ESTIMATED BLOOD LOSS: 100 cc. INDICATIONS: The patient is an 83-year-old man who has recurrent anal cancer. He has a history of prostate cancer. DESCRIPTION OF PROCEDURE: The patient was brought into the operating room, placed supine on the table, and general anesthesia was administered. His Peck was attempted and also unable to pass a coude catheter. I consulted Dr. Merino who performed dilations and was able to place a Peck. The patient was then placed in a lithotomy position, prepped and draped in the usual sterile fashion. I infiltrated all sites with 0.5% Marcaine prior to making incisions. I made an incision superior and to the right of his umbilicus. I elevated the abdominal wall. I inserted the Veress needle. It passed the hang drop test. His abdomen insufflated easily to a pressure of 15 mmHg. I placed an 8 mm trocar with a camera at this site. Under direct vision, I placed an 12 mm trocar in the right lower quadrant, and two 8 mm trocars in the left lower quadrant, and along the left lateral position. He was placed in the Trendelenburg position. I docked the robot. I moved to the console. I placed a grapter in the most left lateral port. I used the Harmonic and caudier. I retracted his redundant sigmoid colon anteriorly. He had diverticulosis from the sigmoid colon all the way up to the splenic flexure. There were no signs of diverticulitis. I divided the vascular pedicle to the sigmoid colon. I made an incision in the peritoneum and I divided the mesentery. The left ureter was protected. I continued my dissection along the white line of Toldt. I did not need to take down the splenic flexure. I performed posterior dissection of the rectum in the presacral space using the Harmonic until I could see the levator ani muscles. Lateral dissection was performed and care was taken to avoid injury to the ureters, as well as the iliac vessels. The lateral attachments were taken down with the Harmonic. Anterior to the peritoneal reflection was opened up and the dissection continued through Denonvilliers' fascia. Once I could no longer reach with my instruments, we performed a rectal exam and I could easily palpate the finger in the rectum. I placed a stapler in the most lateral port and transected the sigmoid colon. I grasped the proximal end with a laparoscopic grasper. I then placed a 15 round silicone drain toward the pelvis. I undocked the robot. I moved to the bedside. He was placed in lithotomy position. I performed an elliptical incision around the anus. Dissection was continued through the skin and subcutaneous tissues posteriorly. I entered the pelvis anterior to the coccyx and divided the anal coccygeal ligament. The levator muscles were divided laterally with electrocautery. Hemostasis was achieved. Anteriorly, there was 1 area where I breached the colon. This was quickly contained. I then was able to deliver the specimen through the perineal incision. The specimen was passed off the field. Hemostasis was achieved. Irrigation was performed. Clean closure performed, initially performed on the abdomen. I closed the fascia at the 12 mm port site with 0 Vicryl. 4-0 Monocryl and Dermabond applied. Then, 3-0 Vicryl was used to close the pelvic peritoneum and 2-0 nylon for the skin. An incisional wound VAC was placed. I then moved to the abdomen and made an ellipse around the remaining trocar. I divided the fascia to accommodate 3 fingerbreadths. I brought the sigmoid colon up into the abdominal wall. I sutured it to the fascia. I then cut off the staple line. I matured the ostomy in a brooking fashion with 3-0 Vicryl. An ostomy appliance was a place. He was awakened in the operating room, extubated, transferred to PACU in stable condition. COMPLICATIONS: No immediate postoperative complications. /[id number]/MODL MTDD
[2018-06-03] MEDS: NS 1,000 ML IV SCH (14:48)
[2018-06-03] MEDS: PRAVASTATIN SODIUM 10 MG TAB PO SCH (18:36)
[2018-06-03] MEDS: MELATONIN 3 MG TAB PO SCH (20:35)
[2018-06-03] MEDS: BIMATOPROST 0.01% 2.5 ML OPHT.BTL EACHEYE SCH (20:50)
[2018-06-03] MEDS ORDERED: HYDROmorphONE/DILAUDID 2 MG/ML INJ IVP PRN (22:00)
[2018-06-04] MEDS: NS 1,000 ML IV SCH ×2 (04:55→18:24)
[2018-06-04 06:18] LABS: PLATELET COUNT 85 10^3/uL (150-400)
--- NOTE | 2018-06-04 09:51 | WOCRNPDOC ---
WOCRJatinder Advanced Assessment Note - Colostomy Assessment, Advanced Left Colostomy Stoma Colostomy Appliance Intact: No (leaking from improper seal on flange) Colostomy Appliance Currently in Use: Two Piece Flat, 2 3/4, Cut to Fit Stoma Color: Red Stoma Turgor: Moist, Shiny Stoma Shape: Oval Stoma Height: Protruding Mucocutaneus Junction: Intact Colostomy Effluent: Fecal Colostomy Details: Colectomy Peristomal Skin: Intact Colostomy Comment/Treatment Details: Day 1 and day 2 education dropped off. Day 1 teaching provided.Ostomy appliance was leaking at the connection between the wafer and pouch flange. The pouch was also not sealed properly, so when removed from the patient it opened completely and stool leaked on patient. Stoma and periwound cleaned with water/washcloth and allowed to air dry. Education on ostomy change provided re: frequency of wafer change, frequency of pouch draining and changing, skin issues to be concerned with, how to close pouch and connect to wafer, one piece ostomy appliances, and proper hydration. Patient had no active participation with ostomy appliance change, and stated he did not have questions at this time. Patient stated he had difficulty with smell of stool, making it hard to handle at this time. Patient has no family available for support in caring for ostomy. Patient informed that he will get three more visits with wound care for practice changing and caring for his ostomy. Verbal consent received from patient for Secure start, and secure start initiated. Wound care will round again this week.
[2018-06-04] MEDS: SERTRALINE HCL 25 MG TAB PO SCH (10:20)
[2018-06-04] MEDS: EYE EACHEYE SCH ×2 (10:21→21:55)
[2018-06-04] MEDS: DORZOLAMIDE 2% EACHEYE SCH ×2 (10:21→21:55)
--- NOTE | 2018-06-04 13:27 | SOAPPROG ---
SOAP Progress Note Assessment/Plan: Assessment/Plan: 83yo M POD#3 s/p APR and end colostomy for recurrent anal cancer Neuro - pain controlled with PO meds Resp - IS CV - AF, hold warfarin. Pacemaker. Hld, home statin. Htn, holding PAWEL and BB d/ t hypotension. Hypotension - BP stable, will monitor GI - gas and stool in appliance. Ostomy teaching - ureteral stricture, appreciate Dr. Merino. Keep pope x 5d due to APR ( removal 06/06) FEN - advance to regular diet Heme/ID - s/p 1u PRBC 06/03. H/H stable. Afebrile, no leukocytosis, no antibiotics PPx - SCDs, IS. Lovenox contraindicated Dispo - PT/OT S - vision has returned to normal. raspy voice and scratchy throat improving. weakness and tired, but working with therapy O - sitting up in chair, comfortable, NAD CTAB, no increased WOB Paced BS present, abd soft, nondistended, nontender, incisions CDI Appliance empty (just changed), ostomy mostly pink with good profile, 2 small areas more ecchymotic - will monitor Prevena vac intact, to suction Pope yellow-sanguinous urine Objective: Vital Signs Temp Pulse Resp BP Pulse Ox 36.8 C 79 14 140/48 H 97 06/04/18 00:00 06/04/18 07:47 06/04/18 07:47 06/04/18 07:47 06/04/18 07:47 Laboratory Results 06/04/18 05:36 06/04/18 05:36 06/03/18 06/04/18 06/05/18 05:59 05:59 05:59 Intake Total 3530 1678 Output Total 875 635 Balance 2655 1043 PT 19.1 SEC (12.0-15.0) H 06/01/18 06:50 INR 1.59 (0.83-1.16) H 06/01/18 06:50 ICD10 Worksheet Patient Problems: Problems Problem Status Onset Atrial fibrillation and flutter Acute Fracture of neck of femur Acute Hypertension Acute Left rib fracture Acute Coronary arteriosclerosis Chronic
[2018-06-04] MEDS: HYDROCODONE/APAP 5/325 TAB PO PRN (14:20)
[2018-06-04] MEDS: PRAVASTATIN SODIUM 10 MG TAB PO SCH (18:55)
[2018-06-04] MEDS: BIMATOPROST 0.01% 2.5 ML OPHT.BTL EACHEYE SCH (21:45)
[2018-06-04] MEDS: MELATONIN 3 MG TAB PO SCH (21:58)
[2018-06-05] MEDS: SERTRALINE HCL 25 MG TAB PO SCH (08:17)
[2018-06-05] MEDS: DORZOLAMIDE 2% EACHEYE SCH ×2 (08:18→20:31)
[2018-06-05] MEDS: EYE EACHEYE SCH ×2 (08:18→20:31)
[2018-06-05] MEDS: ALBUTEROL 60 PUFFS/8 GM MDI IH PRN ×3 (08:23→20:41)
[2018-06-05] MEDS: HYDROCODONE/APAP 5/325 TAB PO PRN (08:26)
--- NOTE | 2018-06-05 09:14 | SOAPPROG ---
SOAP Progress Note Assessment/Plan: Assessment/Plan: 83yo M POD#4 s/p APR and end colostomy for recurrent anal cancer Neuro - pain controlled with PO meds Resp - IS CV - AF, restart warfarin today. Pacemaker. Hld, home statin. Htn, restart metoprolol today. Hypotension resolved GI - gas and stool in appliance, less today, monitor. Ostomy teaching - ureteral stricture, appreciate Dr. Merino. Keep pope x 5d due to APR ( removal 06/06) FEN - regular diet as tolerated Heme/ID - s/p 1u PRBC 06/03. H/H stable. Afebrile, no leukocytosis, no antibiotics PPx - SCDs, IS. Lovenox contraindicated Dispo - PT/OT S - still feeling tired and weak, but improved compared to monday. vision has returned to normal. pain controlled O - sitting up in chair, comfortable, NAD no increased WOB BS quiet, abd soft, more distended than yesterday, nontender, incisions CDI Appliance with serosang fluid, no stool, ostomy mostly pink with good profile slightly more edematous than yesterday Prevena vac intact to suction Pope yellow urine Objective: Vital Signs Temp Pulse Resp BP Pulse Ox 36.5 C 81 16 151/67 H 97 06/05/18 07:56 06/05/18 07:56 06/05/18 07:56 06/05/18 07:56 06/05/18 07:56 Laboratory Results 06/04/18 05:36 06/04/18 05:36 06/04/18 06/05/18 06/06/18 05:59 05:59 05:59 Intake Total 1678 2068 Output Total 635 745 Balance 1043 1323 PT 19.1 SEC (12.0-15.0) H 06/01/18 06:50 INR 1.59 (0.83-1.16) H 06/01/18 06:50 ICD10 Worksheet Patient Problems: Problems Problem Status Onset Atrial fibrillation and flutter Acute Fracture of neck of femur Acute Hypertension Acute Left rib fracture Acute Coronary arteriosclerosis Chronic
--- NOTE | 2018-06-05 11:02 | WOCRNPDOC ---
LORECRJatinder Advanced Assessment Note - Colostomy Assessment, Advanced Left Colostomy Stoma Colostomy Appliance Intact: Yes Colostomy Appliance Currently in Use: Two Piece Flat, 2 3/4, Cut to Fit Stoma Color: Red Stoma Turgor: Moist Stoma Shape: Oval Stoma Height: Protruding Mucocutaneus Junction: Intact Colostomy Details: End Peristomal Skin: Intact Colostomy Comment/Treatment Details: Reviewed materials from day 1 and day 2 teaching that were left in patient's room. Patient had received pre-op teaching at the [facility] and has some knowledge from prior sessions. Reviewed the steps to changing the appliance including frequency along with how often to empty the pouch, who to call if problems arise with leakage or skin breakdown, and dietary considerations. All questions were answered. Two piece appliance was removed and kaden-stomal skin cleansed with a warm washcloth. Template from yesterday was still a good size. Wafer was marked and cut and applied to clean, dry skin. Patient was able to apply pouch to wafer once it was lined up by reconditioning associate. Reviewed emptying procedure for the pouch and patient return demonstrated. Patient had dexterity difficulties with the [place] drainage bag closure and was more successful with the Coloplast closure. Given the overhang of the stoma at 3 and 9 o'clock (mushroom appearance), patient would continue to benefit from wearing a two piece appliance. Supply order form given to case management. cook frozen dessert will round again tomorrow.
[2018-06-05] MEDS: FUROSEMIDE 20 MG TAB PO SCH (11:58)
[2018-06-05] MEDS: NS 1,000 ML IV SCH (11:59)
[2018-06-05] MEDS: WARFARIN SODIUM 2 MG TAB PO SCH (15:25)
--- NOTE | 2018-06-05 16:17 | ASMTCMCOM ---
CM Note CM Note Notes: Met with patient to review dc plan of care. Per therapies, they recommend SNF rehab at this time. Discussed with patient who reports he has had previously been to [facility] and reports "not the best". Referral in [facility] to [facility]. CM to follow. Has ostomy needs. Plan: To SNF rehab when medically cleared for discharge. Date Signed: 06/05/2018 04:16 PM Electronically Signed By:Oksana Fletcher RN
[2018-06-05] MEDS: PRAVASTATIN SODIUM 10 MG TAB PO SCH (18:13)
[2018-06-05] MEDS: BIMATOPROST 0.01% 2.5 ML OPHT.BTL EACHEYE SCH (20:31)
[2018-06-05] MEDS: MELATONIN 3 MG TAB PO SCH (20:31)
[2018-06-06 08:33] LABS: PLATELET COUNT 117 10^3/uL (150-400)
[2018-06-06 08:39] LABS: INR 1.66 (0.83-1.16); PROTIME(PATIENT) 19.7 SEC (12.0-15.0)
[2018-06-06] MEDS: METOPROLOL TARTRATE 25 MG TAB PO SCH (09:21)
[2018-06-06] MEDS: SERTRALINE HCL 25 MG TAB PO SCH (09:21)
[2018-06-06] MEDS: FUROSEMIDE 20 MG TAB PO SCH (09:21)
[2018-06-06] MEDS: EYE EACHEYE SCH ×2 (09:22→20:38)
[2018-06-06] MEDS: DORZOLAMIDE 2% EACHEYE SCH ×2 (09:22→20:38)
--- NOTE | 2018-06-06 13:38 | SOAPPROG ---
SOAP Progress Note Assessment/Plan: Assessment/Plan: 83yo M POD#5 s/p APR and end colostomy for recurrent anal cancer Neuro - pain controlled with PO meds Resp - IS CV - AF, restarted warfarin. Pacemaker. Hld, home statin. Htn, home meds resumed. Hypotension resolved GI - gas and stool in appliance. Ostomy teaching - ureteral stricture, appreciate Dr. Merino. Keep pope - will remove tomorrow FEN - regular diet as tolerated Heme/ID - s/p 1u PRBC 06/03. H/H improving. Afebrile, no leukocytosis, no antibiotics PPx - SCDs, IS. Lovenox contraindicated Dispo - PT/OT. Case management start working on dc to rehab/SNF S - feeling better today! vision has returned to normal. pain controlled O - sitting up in chair, comfortable, NAD no increased WOB BS quiet, abd soft, min distended, nontender, incisions CDI Appliance with serosang fluid, + stool, ostomy mostly pink with good profile, edematous - will monitor Prevena vac intact to suction Pope yellow urine Objective: Vital Signs Temp Pulse Resp BP Pulse Ox 36.6 C 78 16 158/69 H 99 06/06/18 08:44 06/06/18 09:21 06/06/18 08:44 06/06/18 09:21 06/06/18 08:44 Laboratory Results 06/06/18 08:26 06/06/18 08:26 06/05/18 06/06/18 06/07/18 05:59 05:59 05:59 Intake Total 4452 700 Output Total 707 895 815 Balance 1323 -195 -815 PT 19.7 SEC (12.0-15.0) H 06/06/18 08:26 INR 1.66 (0.83-1.16) H 06/06/18 08:26 ICD10 Worksheet Patient Problems: Problems Problem Status Onset Atrial fibrillation and flutter Acute Fracture of neck of femur Acute Hypertension Acute Left rib fracture Acute Coronary arteriosclerosis Chronic
--- NOTE | 2018-06-06 13:41 | ASMTCMCOM ---
CM Note CM Note Notes: Per therapy patient is getting better but SNF still recommended. Patient accepted to [facility]. CM to follow. Plan: Dc to SNF when medically cleared for discharge, Date Signed: 06/06/2018 01:40 PM Electronically Signed By:Oksana Fletcher RN
[2018-06-06] MEDS ORDERED: HYDROmorphONE/DILAUDID 1 MG/ML INJ IVP PRN (15:00)
[2018-06-06] MEDS: IPRATROPIUM/ALBUTEROL 3 ML DEYVIAL IH ONE ×2 (15:16→16:06)
[2018-06-06] MEDS: WARFARIN SODIUM 2 MG TAB PO SCH (15:54)
[2018-06-06] MEDS ORDERED: IPRATROPIUM/ALBUTEROL 3 ML DEYVIAL ONE (16:00)
[2018-06-06] MEDS: PRAVASTATIN SODIUM 10 MG TAB PO SCH (18:10)
[2018-06-06] MEDS: MELATONIN 3 MG TAB PO SCH (20:38)
[2018-06-06] MEDS: BIMATOPROST 0.01% 2.5 ML OPHT.BTL EACHEYE SCH (20:38)
[2018-06-06] MEDS: HYDROCODONE/APAP 5/325 TAB PO PRN (21:50)
[2018-06-07 04:34] LABS: INR 1.59 (0.83-1.16); PROTIME(PATIENT) 19.1 SEC (12.0-15.0)
--- NOTE | 2018-06-07 09:04 | SOAPPROG ---
SOAP Progress Note Assessment/Plan: Assessment: 83 year old s/p APR for recurrent anal cancer Pain controlled with Tylenol Has gas and stool in appliance Regular Atrial Fibrillation Warfarin Pacemaker Hyperlipidemia Home statin Hypertension Resumed home meds Hypotension BP stable. Will monitor Resolved Urethral Stricture Appreciate Dr. ahuja assisting with Peck. Remove Peck today' S: Slept well O: Lying in bed, good spirits CTAB Paced BS present, soft, Incisions cdi Gas and stool in appliance Prevena vac intact REID with serosanguinous fluid Plan: 06/02/18 12:38 06/07/18 09:03 Objective: Vital Signs Temp Pulse Resp BP Pulse Ox 36.4 C 73 10 L 123/82 H 95 06/07/18 08:00 06/07/18 08:00 06/07/18 08:00 06/07/18 08:00 06/07/18 08:00 Laboratory Results 06/06/18 08:26 06/06/18 08:26 06/06/18 06/07/18 06/08/18 05:59 05:59 05:59 Intake Total 700 600 Output Total 895 1705 240 Balance -195 -1105 -240 PT 19.1 SEC (12.0-15.0) H 06/07/18 03:56 INR 1.59 (0.83-1.16) H 06/07/18 03:56 ICD10 Worksheet Patient Problems: Problems Problem Status Onset Atrial fibrillation and flutter Acute Fracture of neck of femur Acute Hypertension Acute Left rib fracture Acute Coronary arteriosclerosis Chronic
[2018-06-07] MEDS: FUROSEMIDE 20 MG TAB PO SCH (09:35)
[2018-06-07] MEDS: SERTRALINE HCL 25 MG TAB PO SCH (09:35)
[2018-06-07] MEDS: METOPROLOL TARTRATE 25 MG TAB PO SCH (09:35)
[2018-06-07] MEDS: DORZOLAMIDE 2% EACHEYE SCH ×2 (09:36→20:14)
[2018-06-07] MEDS: EYE EACHEYE SCH ×2 (09:36→20:14)
[2018-06-07] MEDS: BENAZEPRIL HCL 10 MG TAB PO SCH (09:37)
--- NOTE | 2018-06-07 12:31 | WOCRNPDOC ---
MICHAEL Advanced Assessment Note - Colostomy Assessment, Advanced Left Colostomy Stoma Colostomy Appliance Intact: Yes Colostomy Appliance Currently in Use: Two Piece Flat, 2 3/4, Cut to Fit Stoma Color: Red Stoma Turgor: Moist, Shiny Stoma Shape: Oval Stoma Height: Protruding Mucocutaneus Junction: Intact Colostomy Effluent: Fecal Colostomy Details: Colectomy Peristomal Skin: Intact Colostomy Comment/Treatment Details: Day 3 education provided to patient. Patient has some anxiety about caring for his ostomy. He is concerned about his weakness, which prevents him from getting up to empty the pouch and folding/ sealing up the drainable end. He has dexterity issues which prevent him from being able to cut the wafer to fit his stoma, and also to connect the wafer to the pouch on the hospital supplies. The patient had two attempts with cutting the wafer with the help of a template, but cut the new wafer too large. The patient is concerned that there will not be someone available to help him at [facility]. Education provided re: 24 hour nursing care available at SNF. Education provided and reinforced re: how large to cut wafer, frequency of wafer changes as well as pouch emptying and changes, and skin complications and how to avoid them. Education provided about nutrition and hydration. Patient did remember parts of previous teaching, but confused wafer changes with pouch changes. Patient informed that there will be one more day of teaching before discharge. Patient will discharging to SNF. Wound care will round once more.
[2018-06-07] MEDS: WARFARIN SODIUM 2 MG TAB PO SCH (16:52)
[2018-06-07] MEDS: PRAVASTATIN SODIUM 10 MG TAB PO SCH (18:26)
[2018-06-07] MEDS: MELATONIN 3 MG TAB PO SCH (20:13)
[2018-06-07] MEDS: HYDROCODONE/APAP 5/325 TAB PO PRN (20:13)
[2018-06-07] MEDS: BIMATOPROST 0.01% 2.5 ML OPHT.BTL EACHEYE SCH (20:14)
[2018-06-07] MEDS: ALBUTEROL 60 PUFFS/8 GM MDI IH PRN (20:17)
--- NOTE | 2018-06-07 22:01 | SOAPPROG ---
SODELTA Progress Note Assessment/Plan: Assessment: CALLED TO SEE PT WELL KNOWN TO ME FROM VASCULAR SURGERIES/ NOW BLEEDING FROM PERINEAL WOUND AFTER APR 6 DAYS PT ON COUMADIN BUT INR SUBTHERAPEUTIC EXAM REVEALS DIFFUSE BLOODY DRAINAGE THROUGH MULTIPLE WOUND SITES, LARGEST AT APEX OF SUTURES/ SOME ODOR AREA CLEANSED AND DRAINAGE OF HEMATOMA FACILITATED WITH NELLIE DRAINS WILL POSSIBLY NEED CULTURES BUT AFEBRILE WILL BENEFIT FROM WOUND IRIGATIONS AND MAY NEED LARGER OPENING Plan:EVAC OF PERINEAL WOUND HEMATOMA 06/07/18 21:55 Objective: Vital Signs Temp Pulse Resp BP Pulse Ox 36.8 C 75 16 118/55 L 95 06/07/18 19:58 06/07/18 19:58 06/07/18 19:58 06/07/18 19:58 06/07/18 19:58 Laboratory Results 06/06/18 08:26 06/06/18 08:26 06/06/18 06/07/18 06/08/18 05:59 05:59 05:59 Intake Total 700 600 200 Output Total 895 1705 650 Balance -195 -1105 -450 PT 19.1 SEC (12.0-15.0) H 06/07/18 03:56 INR 1.59 (0.83-1.16) H 06/07/18 03:56 ICD10 Worksheet Patient Problems: Problems Problem Status Onset Atrial fibrillation and flutter Acute Fracture of neck of femur Acute Hypertension Acute Left rib fracture Acute Coronary arteriosclerosis Chronic
[2018-06-08] MEDS: HYDROCODONE/APAP 5/325 TAB PO PRN ×2 (02:13→18:01)
[2018-06-08] MEDS: ALBUTEROL 60 PUFFS/8 GM MDI IH PRN (02:13)
[2018-06-08 05:13] LABS: INR 1.66 (0.83-1.16); PROTIME(PATIENT) 19.7 SEC (12.0-15.0)
[2018-06-08 08:20] LABS: PLATELET COUNT 163 10^3/uL (150-400)
[2018-06-08] MEDS: FUROSEMIDE 20 MG TAB PO SCH (09:12)
[2018-06-08] MEDS: BENAZEPRIL HCL 10 MG TAB PO SCH (09:12)
[2018-06-08] MEDS: SERTRALINE HCL 25 MG TAB PO SCH (09:13)
[2018-06-08] MEDS: METOPROLOL TARTRATE 25 MG TAB PO SCH (09:13)
--- NOTE | 2018-06-08 10:26 | ASMTCMCOM ---
CM Note CM Note Notes: Chart reviewed. Spoke with wound care and discussed patient disposition to SNF post discharge. She requested I call ostomy supply to dc order for now. I called the agency who states they have no order despite the order and fax confirmation sheet in the chart. Plan remains to [facility] when medically cleared for dc. Plan: [facility] Date Signed: 06/08/2018 10:25 AM Electronically Signed By:Oksana Fletcher RN
--- NOTE | 2018-06-08 10:27 | WOCRNPDOC ---
MICHAEL Advanced Assessment Note - Colostomy Assessment, Advanced Left Colostomy Stoma Colostomy Appliance Intact: Yes Colostomy Appliance Currently in Use: Two Piece Flat, 2 3/4, Cut to Fit Stoma Color: Red Stoma Turgor: Moist Stoma Shape: Oval Stoma Height: Protruding Colostomy Details: End Colostomy Comment/Treatment Details: Appliance not changed at this time. Discussed with patient that he will continue to receive teaching when he goes to [facility]. Dropped off a brochure from [employer] and [facility] the [facility] of custom, cut to fit wafers after you provide them with a mold of your stoma. Given the patient's dexterity issues, he would benefit from having wafters that were cut to his specific stoma shape to aid in independence. Discussed with JULIETTE Bhandari that the supply order that was submitted to [facility] should be cancelled since he will be going to [facility] instead of home. Patient would benefit from going to [facility] for further help with management of his ostomy. assignment clerk will sign off at this time. Please reconsult if issues with leakage or skin breakdown arise.
--- NOTE | 2018-06-08 10:41 | SOAPPROG ---
SOAP Progress Note Assessment/Plan: Assessment/Plan: 83yo M POD#7 s/p APR and end colostomy for recurrent anal cancer Pain controlled with PO meds CV - AF, restarted warfarin. Pacemaker. Hld, home statin. Htn, home meds. Hypotension resolved Gas and stool in appliance. Ostomy teaching. Regular diet Urethral stricture, appreciate Dr. Merino. Voiding spontaneously s/p pope removal ABLA - s/p 1u PRBC 06/03. H/H stable Wound - perineal wound with retained hematoma, s/p evacuation and irrigation at bedside. [place] in place. Change outer dressing daily or more frequently PRN PPx - SCDs, IS. Lovenox contraindicated Dispo - PT/OT. Case management start working on dc to rehab/SNF S - no complaints this morning, sleeping well O - laying in bed, comfortable, NAD no increased WOB +BS, soft, nondistended, nontender, incisions CDI Appliance + stool, ostomy mostly pink with good profile, edematous - improving Perineal wound with stitches intact, sesar drain from superior aspect of wound. Wound irrigated with NS with clear return of fluid. Wound cleansed with betadine swabs. Outer dressing of ABD+ medipore replaced Objective: Vital Signs Temp Pulse Resp BP Pulse Ox 36.6 C 90 14 135/67 H 94 06/08/18 09:30 06/08/18 09:30 06/08/18 09:30 06/08/18 09:30 06/08/18 09:30 Laboratory Results 06/08/18 08:00 06/06/18 08:26 06/07/18 06/08/18 06/09/18 05:59 05:59 05:59 Intake Total 600 200 120 Output Total 1705 795 30 Balance -1105 -595 90 PT 19.7 SEC (12.0-15.0) H 06/08/18 04:36 INR 1.66 (0.83-1.16) H 06/08/18 04:36 ICD10 Worksheet Patient Problems: Problems Problem Status Onset Atrial fibrillation and flutter Acute Fracture of neck of femur Acute Hypertension Acute Left rib fracture Acute Coronary arteriosclerosis Chronic
[2018-06-08] MEDS: EYE EACHEYE SCH ×2 (14:23→21:15)
[2018-06-08] MEDS: DORZOLAMIDE 2% EACHEYE SCH ×2 (14:23→21:15)
[2018-06-08] MEDS: WARFARIN SODIUM 2 MG TAB PO SCH (16:28)
[2018-06-08] MEDS: PRAVASTATIN SODIUM 10 MG TAB PO SCH (18:00)
[2018-06-08] MEDS: BIMATOPROST 0.01% 2.5 ML OPHT.BTL EACHEYE SCH (21:15)
[2018-06-08] MEDS: MELATONIN 3 MG TAB PO SCH (21:15)
[2018-06-09] MEDS: HYDROCODONE/APAP 5/325 TAB PO PRN ×3 (04:56→13:09)
[2018-06-09 05:17] LABS: INR 1.57 (0.83-1.16); PROTIME(PATIENT) 18.9 SEC (12.0-15.0)
--- NOTE | 2018-06-09 06:55 | SOAPPROG ---
SOAP Progress Note Assessment/Plan: Assessment: 83 year old s/p APR for recurrent anal cancer Pain controlled with Tylenol Has gas and stool in appliance Regular diet Atrial Fibrillation Warfarin - Pacemaker Hyperlipidemia Home statin Hypertension Resumed home meds Hypotension Resolved Acute blood loss anemia resolved Urethral Stricture Appreciate Dr. ahuja assisting with Pope. No issues with voiding post pope removal Hematoma and wound dehiscence perineum Much improved S: Slept well O: Lying in bed, good spirits CTAB Paced BS present, soft, Incisions cdi Gas and stool in appliance Perineal incision with sesar. Odor improved. Less clots. Irrigated Plan: 06/02/18 12:38 06/07/18 09:03 06/09/18 06:50 06/09/18 07:59 Objective: Vital Signs Temp Pulse Resp BP Pulse Ox 36.9 C 80 18 120/67 93 06/09/18 04:37 06/09/18 04:37 06/09/18 04:37 06/09/18 04:37 06/09/18 04:37 Laboratory Results 06/08/18 08:00 06/06/18 08:26 06/08/18 06/09/18 06/10/18 05:59 05:59 05:59 Intake Total 200 245 Output Total 795 785 Balance -595 -540 PT 18.9 SEC (12.0-15.0) H 06/09/18 05:00 INR 1.57 (0.83-1.16) H 06/09/18 05:00 ICD10 Worksheet Patient Problems: Problems Problem Status Onset Atrial fibrillation and flutter Acute Fracture of neck of femur Acute Hypertension Acute Left rib fracture Acute Coronary arteriosclerosis Chronic
[2018-06-09] MEDS: BENAZEPRIL HCL 10 MG TAB PO SCH (09:17)
[2018-06-09] MEDS: SERTRALINE HCL 25 MG TAB PO SCH (09:17)
[2018-06-09] MEDS: DORZOLAMIDE 2% EACHEYE SCH ×2 (09:18→20:44)
[2018-06-09] MEDS: EYE EACHEYE SCH ×2 (09:18→20:44)
[2018-06-09] MEDS: METOPROLOL TARTRATE 25 MG TAB PO SCH (09:18)
[2018-06-09] MEDS: FUROSEMIDE 20 MG TAB PO SCH (09:18)
[2018-06-09] MEDS: PRAVASTATIN SODIUM 10 MG TAB PO SCH (17:23)
[2018-06-09] MEDS: WARFARIN SODIUM 2 MG TAB PO SCH (17:24)
[2018-06-09] MEDS: MELATONIN 3 MG TAB PO SCH (20:44)
[2018-06-09] MEDS: BIMATOPROST 0.01% 2.5 ML OPHT.BTL EACHEYE SCH (20:45)
[2018-06-10 04:28] LABS: INR 1.68 (0.83-1.16); PROTIME(PATIENT) 19.9 SEC (12.0-15.0)
[2018-06-10] MEDS: HYDROCODONE/APAP 5/325 TAB PO PRN ×4 (04:53→20:49)
[2018-06-10] MEDS: BENAZEPRIL HCL 10 MG TAB PO SCH (09:04)
[2018-06-10] MEDS: FUROSEMIDE 20 MG TAB PO SCH (09:04)
[2018-06-10] MEDS: SERTRALINE HCL 25 MG TAB PO SCH (09:05)
[2018-06-10] MEDS: METOPROLOL TARTRATE 25 MG TAB PO SCH (09:05)
[2018-06-10] MEDS: DORZOLAMIDE 2% EACHEYE SCH ×2 (09:06→20:52)
[2018-06-10] MEDS: EYE EACHEYE SCH ×2 (09:06→20:52)
--- NOTE | 2018-06-10 09:27 | SOAPPROG ---
SOAP Progress Note Assessment/Plan: Assessment: CALLED TO SEE PT WELL KNOWN TO ME FROM VASCULAR SURGERIES/ NOW BLEEDING FROM PERINEAL WOUND AFTER APR 6 DAYS PT ON COUMADIN BUT INR SUBTHERAPEUTIC EXAM REVEALS DIFFUSE BLOODY DRAINAGE THROUGH MULTIPLE WOUND SITES, LARGEST AT APEX OF SUTURES/ SOME ODOR AREA CLEANSED AND DRAINAGE OF HEMATOMA FACILITATED WITH NELLIE DRAINS WILL POSSIBLY NEED CULTURES BUT AFEBRILE WILL BENEFIT FROM WOUND IRIGATIONS AND MAY NEED LARGER OPENING Plan:EVAC OF PERINEAL WOUND HEMATOMA 06/07/18 21:55 06/10/18 09:26 COMFORTABLE/VITAL SIGNS STABLE/AFEBRILE/ WOUND DRAINAGE IS DECREASED AND REID DRAINAGE IS DECREASED/PERINEAL WOUND STILL HAS SOME SEEPAGE THROUGH THE STITCHES BUT IS MUCH DECREASED INR 1.7 PLAN CONTINUE PERINEAL WOUND CARE Objective: Vital Signs Temp Pulse Resp BP Pulse Ox 36.6 C 92 16 131/57 H 94 06/10/18 07:38 06/10/18 07:38 06/10/18 07:38 06/10/18 07:38 06/10/18 07:38 Laboratory Results 06/08/18 08:00 06/06/18 08:26 06/09/18 06/10/18 06/11/18 05:59 05:59 05:59 Intake Total 245 300 Output Total 785 900 Balance -540 -600 PT 19.9 SEC (12.0-15.0) H 06/10/18 03:22 INR 1.68 (0.83-1.16) H 06/10/18 03:22 ICD10 Worksheet Patient Problems: Problems Problem Status Onset Atrial fibrillation and flutter Acute Fracture of neck of femur Acute Hypertension Acute Left rib fracture Acute Coronary arteriosclerosis Chronic
[2018-06-10] MEDS: ALBUTEROL 60 PUFFS/8 GM MDI IH PRN (15:12)
[2018-06-10] MEDS: PRAVASTATIN SODIUM 10 MG TAB PO SCH (17:31)
[2018-06-10] MEDS: WARFARIN SODIUM 2 MG TAB PO SCH (17:35)
[2018-06-10] MEDS: MELATONIN 3 MG TAB PO SCH (20:49)
[2018-06-10] MEDS: BIMATOPROST 0.01% 2.5 ML OPHT.BTL EACHEYE SCH (20:52)
[2018-06-11 04:43] LABS: INR 2.02 (0.83-1.16); PROTIME(PATIENT) 22.9 SEC (12.0-15.0)
[2018-06-11 04:50] LABS: PLATELET COUNT 226 10^3/uL (150-400)
[2018-06-11] MEDS: HYDROCODONE/APAP 5/325 TAB PO PRN ×3 (08:05→20:03)
[2018-06-11] MEDS: FUROSEMIDE 20 MG TAB PO SCH (09:09)
[2018-06-11] MEDS: BENAZEPRIL HCL 10 MG TAB PO SCH (09:09)
[2018-06-11] MEDS: METOPROLOL TARTRATE 25 MG TAB PO SCH (09:09)
[2018-06-11] MEDS: DORZOLAMIDE 2% EACHEYE SCH ×2 (09:10→20:03)
[2018-06-11] MEDS: SERTRALINE HCL 25 MG TAB PO SCH (09:10)
[2018-06-11] MEDS: EYE EACHEYE SCH ×2 (09:10→20:03)
[2018-06-11] MEDS: ONDANSETRON DISINTEGRATING 4 MG TAB PO PRN (09:28)
--- NOTE | 2018-06-11 12:55 | ASMTCMCOM ---
CM Note CM Note Notes: Chart reviewed. Per therapy SNF still recommendation. Has perianal wound and ostomy. CM to follow. Plan: To [facility] when medically stable for discharge. Date Signed: 06/11/2018 12:54 PM Electronically Signed By:Oksana Fletcher RN
[2018-06-11] MEDS: WARFARIN SODIUM 2 MG TAB PO SCH (15:59)
--- NOTE | 2018-06-11 16:56 | SOAPPROG ---
SOAP Progress Note Assessment/Plan: Assessment/Plan: 83yo M POD s/p APR and end colostomy for recurrent anal cancer Path [id number] Pain controlled with PO meds CV - AF, hold warfarin for surgery tomorrow. Pacemaker. Hld, home statin. Htn, home meds. Hypotension - monitor Gas and stool in appliance. Ostomy teaching. Regular diet. NPO 8h prior to surgery Urethral stricture, appreciate Dr. Merino. Voiding spontaneously s/p pope removal ABLA - s/p 1u PRBC 06/03. H/H improved Wound dehiscence - will go to OR tomorrow for exam under anesthesia, debridement , wound vac application. Wet to dry dressing overnight PPx - SCDs, IS. Lovenox contraindicated Dispo - PT/OT. SNF after DC. OR tomorrow. Additionally seen by Dr. Bowers and discussed with Dr. Milligan. S - no complaints this morning, feeling well, slept well last night O - laying in bed, comfortable, NAD no increased WOB Soft, nondistended, nontender, incisions CDI Appliance + stool, ostomy pink with good profile Perineal wound with complete dehiscence. Stitched and sesar removed. Wound irrigated with NS. 06/11/18 16:58 Objective: Vital Signs Temp Pulse Resp BP Pulse Ox 36.8 C 88 16 90/40 L 94 06/11/18 15:51 06/11/18 15:51 06/11/18 15:51 06/11/18 16:30 06/11/18 15:51 Laboratory Results 06/11/18 04:22 06/06/18 08:26 06/10/18 06/11/18 06/12/18 05:59 05:59 05:59 Intake Total 300 1300 Output Total 900 350 315 Balance -600 950 -315 PT 22.9 SEC (12.0-15.0) H 06/11/18 04:22 INR 2.02 (0.83-1.16) H 06/11/18 04:22 ICD10 Worksheet Patient Problems: Problems Problem Status Onset Atrial fibrillation and flutter Acute Fracture of neck of femur Acute Hypertension Acute Left rib fracture Acute Coronary arteriosclerosis Chronic
[2018-06-11] MEDS ORDERED: PHYTONADIONE 2.5 MG/2.5 ML ORAL UDL PO ONE (17:01)
[2018-06-11] MEDS: PRAVASTATIN SODIUM 10 MG TAB PO SCH (17:19)
[2018-06-11] MEDS: BIMATOPROST 0.01% 2.5 ML OPHT.BTL EACHEYE SCH (20:02)
[2018-06-11] MEDS: MELATONIN 3 MG TAB PO SCH (20:03)
[2018-06-12 05:30] LABS: INR 1.98 (0.83-1.16); PROTIME(PATIENT) 22.6 SEC (12.0-15.0)
[2018-06-12] MEDS: FUROSEMIDE 20 MG TAB PO SCH (08:26)
[2018-06-12] MEDS: METOPROLOL TARTRATE 25 MG TAB PO SCH (08:26)
[2018-06-12] MEDS: BENAZEPRIL HCL 10 MG TAB PO SCH (08:26)
[2018-06-12] MEDS: SERTRALINE HCL 25 MG TAB PO SCH (08:26)
[2018-06-12] MEDS: DORZOLAMIDE 2% EACHEYE SCH ×2 (08:33→20:23)
[2018-06-12] MEDS: EYE EACHEYE SCH ×2 (08:33→20:23)
[2018-06-12] MEDS: HYDROCODONE/APAP 5/325 TAB PO PRN ×2 (08:33→19:12)
[2018-06-12] MEDS ORDERED: cefOXitin SODIUM 2 GM in NS 100 ML IV ONE (09:02)
--- NOTE | 2018-06-12 09:02 | SOAPPROG ---
SOAP Progress Note Assessment/Plan: Assessment/Plan: 83yo M POD s/p APR and end colostomy for recurrent anal cancer Path [id number] Pain controlled with PO meds CV - AF, hold warfarin for surgery. may need FFP for reversal. Pacemaker. Hld, home statin. Htn, home meds. Hypotension - improved, monitor Gas and stool in appliance. Ostomy teaching. Regular diet. NPO for surgery - clears until 1200 but no broth, then NPO Urethral stricture, appreciate Dr. Merino. Voiding spontaneously s/p pope removal ABLA - s/p 1u PRBC 06/03. H/H improved Wound dehiscence - will go to OR today at 1630 for exam under anesthesia, debridement, wound vac application. PPx - SCDs, IS. Lovenox contraindicated Dispo - PT/OT. SNF after DC. OR today, consent signed in chart. Seen with Dr. Milligan. S - Pain this morning at site of wound, uncomfortable overnight. A bit disoriented this am about how long he has been in hospital O - laying in bed, comfortable, NAD no increased WOB +BS, soft, nondistended, nontender, incisions CDI Appliance + stool, ostomy pink with good profile Perineal wound not examined this am 06/12/18 09:01 Objective: Vital Signs Temp Pulse Resp BP Pulse Ox 36.6 C 83 18 117/58 L 93 06/12/18 08:00 06/12/18 08:26 06/12/18 08:00 06/12/18 08:26 06/12/18 08:00 Laboratory Results 06/11/18 04:22 06/06/18 08:26 06/11/18 06/12/18 06/13/18 05:59 05:59 05:59 Intake Total 1300 200 Output Total 350 615 Balance 950 -415 PT 22.6 SEC (12.0-15.0) H 06/12/18 04:26 INR 1.98 (0.83-1.16) H 06/12/18 04:26 ICD10 Worksheet Patient Problems: Problems Problem Status Onset Atrial fibrillation and flutter Acute Fracture of neck of femur Acute Hypertension Acute Left rib fracture Acute Coronary arteriosclerosis Chronic
--- NOTE | 2018-06-12 15:09 | ASMTCMCOM ---
CM Note CM Note Notes: Chart reviewed. Plan back to OR tonight for wound dehiscence and wound vac placement. Met with patient and he is somewhat anxious about his health situation. He will go to [facility] at discharge. Will update notes to facility. Plan: Disposition SNF. Date Signed: 06/12/2018 03:08 PM Electronically Signed By:Oksana Fletcher RN
[2018-06-12] MEDS ORDERED: LR 1,000 ML IV ONE (15:52)
[2018-06-12] MEDS ORDERED: fentaNYL 100 MCG/2 ML INJ ONE ×2 (15:54→17:37)
[2018-06-12] MEDS ORDERED: PROPOFOL 200 MG/20 ML VIAL ONE (15:54)
[2018-06-12] MEDS ORDERED: MIDAZOLAM 2 MG/2 ML VIAL ONE (15:54)
[2018-06-12] MEDS ORDERED: CALCIUM CHLORIDE 1 GM/10 ML INJ ONE (15:55)
[2018-06-12] MEDS ORDERED: LIDOCAINE 2% 5 ML SDV ONE (15:55)
[2018-06-12] MEDS ORDERED: fentaNYL 100 MCG/2 ML INJ IVP PRN (16:36)
[2018-06-12] MEDS ORDERED: ALBUTEROL 3 ML DEYVIAL IH PRN (16:36)
[2018-06-12] MEDS ORDERED: NALOXONE HCL 0.4 MG/ML INJ IVP PRN (16:36)
[2018-06-12] MEDS ORDERED: ONDANSETRON 4 MG/2 ML VIAL IVP PRN (16:36)
--- NOTE | 2018-06-12 16:36 | PDANEPAE ---
ANE Past Medical History - Cardiovascular History Hx Hypertension: Yes Hx Arrhythmias: Yes Hx Chest Pain: No Hx Coronary Artery / Peripheral Vascular Disease: Yes Hx CHF / Valvular Disease: No Hx Palpitations: No Cardiovascular History Comment: aortic aneurysm. afib - chronic. pacemaker for complete heart block. cardiomyopathy. CAD s/p CABG in 2000. htn. hyperlipidemia. pvd. hx of cabg. followed by [facility] - Pulmonary History Hx COPD: No Hx Asthma/Reactive Airway Disease: Yes Hx Recent Upper Respiratory Infection: No Hx Oxygen in Use at Home: No Hx Sleep Apnea: No Sleep Apnea Screening Result - Last Documented: Positive Pulmonary History Comment: hx of ЕЛЕНА, pt denies dx or using cpap. no ER visits for RAD, uses inhaler 1-2/d - Neurologic History Hx Cerebrovascular Accident: No Hx Seizures: No Hx Dementia: No Neurologic History Comment: hx of intracerebral hemorrage - Endocrine History Hx Diabetes: No Obesity: no - Renal History Hx Renal Disorders: No Renal History Comment: h/o Prostate CA - Liver History Hx Hepatic Disorders: No - Neurological & Psychiatric Hx Hx Neurological and Psychiatric Disorders: Yes Neurological / Psychiatric History Comment: depression. anxiety - Cancer History Hx Cancer: Yes Cancer History Comment: rectal ca. Prostate-radiation seeds 1999. Basal cell top of head-removed - Congenital Disorder History Hx Congenital Disorders: No - GI History Hx Gastrointestinal Disorders: Yes Gastrointestinal History Comment: rectal CA - Other Health History Other Health History: macular degeneration. wears glasses - Chronic Pain History Chronic Pain: No - Surgical History Prior Surgeries: 02/16/18 rectal mass excision with Srini. 02/17/15 left CEA with Dayron. 06/27/14 rectal exam with excision of anal CA with Srini. right TANK with Shoshana. 2004-remove DVT R leg. 11/30/09 EP study/ ablation with Murali. Bilateral cataracts. 2002-4 vessel CABG ANE Review of Systems Review of Systems: - Exercise capacity METS (RN): 3 METS - Pacemaker Pacemaker Type: Permanent Pacer/Defib Pacemaker Ssis Architect: [place] [employer] Pacemaker Model: Etrinsa 8 SR-T Pacemaker Mode: VVI-CLS Pacemaker Set Rate: 70 Date Pacemaker Last Checked: 05/04/18 ANE Patient History - Allergies Allergies/Adverse Reactions: No Known Allergies Allergy (Verified 05/28/18 17:00) - Home Medications Home Medications: Albuterol [Proventil Inhaler HFA (*)] 1 - 2 puffs IH Q4H PRN 02/13/18 [Last Taken 05/31/18] Aspirin [Aspirin 81mg (*)] 81 mg PO DAILY 02/13/18 [Last Taken 05/31/18] Benazepril HCl 5 mg PO DAILY 02/13/18 [Last Taken 05/31/18] Bimatoprost 0.01% [Lumigan 0.01% (*)] 1 drops EACHEYE HS 02/13/18 [Last Taken ] C/E/Zn/Cu/OM3/DHA/EPA/LUT/ZEAX [Preservision Areds 2 Softgel] 1 each PO DAILY [Last Taken 05/31/18] Cholecalciferol Vit D3 [Vitamin D3 (*)] 1,000 units PO DAILY 02/13/18 [Last Taken 05/31/18] Furosemide [Lasix 20 MG (*)] 20 mg PO DAILY 02/13/18 [Last Taken 05/31/18] Metoprolol Tartrate [Lopressor 25 mg (*)] 25 mg PO DAILY 02/13/18 [Last Taken ] Sertraline HCl [Zoloft 25mg (*)] 25 mg PO DAILY 02/13/18 [Last Taken 06/01/18] Simvastatin [Zocor] 10 mg PO Q2D 02/13/18 [Last Taken 05/31/18] Simvastatin [Zocor] 20 mg PO Q2D 02/13/18 [Last Taken 06/01/18] Warfarin Sodium [Coumadin 2MG (*)] 2 mg PO DAILY@1600 02/13/18 [Last Taken 05/28] Melatonin/Pyridoxine [Melatonin 5 mg Tablet] 1 each PO HS 05/18/18 [Last Taken 1 Week Ago ~05/25/18] Dorzolamide HCl/Pf [Dorzolamide 2% Eye Drop] 1 drop EACHEYE BID 06/01/18 [Last Taken Unknown] - NPO status NPO Since - Liquids (Date): 06/12/18 NPO Since - Liquids (Time): 12:00 NPO Since - Solids (Date): 06/12/18 NPO Since - Solids (Time): 08:30 - Smoking Hx Smoking Status: Former smoker - Family Anes Hx Family Hx Anesthesia Complications: none ANE Labs/Vital Signs - Labs Result Diagrams: 06/11/18 04:22 06/06/18 08:26 - Vital Signs Blood Pressure: 148/60 Heart Rate: 76 Respiratory Rate: 16 O2 Sat (%): 97 Height: 172.72 cm Weight: 70.896 kg ANE Physical Exam - Airway Neck exam: decreased ROM Mallampati Score: Class 2 Mouth exam: poor dentition - Pulmonary Pulmonary: no respiratory distress, no rales or rhonchi, reduced air movement - Cardiovascular Cardiovascular: regular rate and rhythym, no murmur, rub, or gallop - ASA Status ASA Status: IV ANE Anesthesia Plan Anesthesia Plan: GA w LMA
--- NOTE | 2018-06-12 16:54 | POSTOPPROG ---
Post Op Note Date of Operation: 06/12/18 Surgeon: Leanna Milligan Anesthesiologist: marie Anesthesia: GET(General Endotracheal) Pre-op Diagnosis: wound dehiscence s/p apr recurrent anal cancer Post-op Diagnosis: same Indication: 83 yo with recurrent anal cancer, s/p APR with wound dehicience Procedure: EUA wound vac Findings: 9x5.5x10 Inf/Abcess present in the surg proc area at time of surgery?: Yes Depth: Deep Incisional (Fascial) EBL: Minimal Drains: Wound Vac
--- NOTE | 2018-06-12 17:42 | POSTANESTH ---
Post Anesthetic Evaluation Cardiovascular Status: Normal, Stable, Similar to Pre-Op Cond Respiratory Status: Normal, Stable, Similar to Pre-op Cond. Level of Consciousness/Mental Status: Moderately Sleepy Pain Control: Adequate, Prn Tx Ordered Nausea/Vomiting Control: Adequate, Prn Tx Ordered Complications Possibly Related to Anesthesia: None Noted
[2018-06-12] MEDS: PRAVASTATIN SODIUM 10 MG TAB PO SCH (19:13)
[2018-06-12] MEDS: MELATONIN 3 MG TAB PO SCH (20:22)
[2018-06-12] MEDS: BIMATOPROST 0.01% 2.5 ML OPHT.BTL EACHEYE SCH (20:23)
[2018-06-12] MEDS: ACETAMINOPHEN 325 MG TAB PO PRN (20:27)
[2018-06-13 05:17] LABS: INR 1.49 (0.83-1.16); PROTIME(PATIENT) 18.2 SEC (12.0-15.0)
[2018-06-13] MEDS: SERTRALINE HCL 25 MG TAB PO SCH (09:53)
[2018-06-13] MEDS: FUROSEMIDE 20 MG TAB PO SCH (09:53)
[2018-06-13] MEDS: BENAZEPRIL HCL 10 MG TAB PO SCH (09:53)
[2018-06-13] MEDS: DORZOLAMIDE 2% EACHEYE SCH ×2 (09:54→20:55)
[2018-06-13] MEDS: EYE EACHEYE SCH ×2 (09:54→20:55)
[2018-06-13] MEDS: METOPROLOL TARTRATE 25 MG TAB PO SCH (09:58)
--- NOTE | 2018-06-13 13:48 | SOAPPROG ---
SOAP Progress Note Assessment/Plan: Assessment/Plan: 83yo M POD s/p APR and end colostomy for recurrent anal cancer , POD#1 s/p debridement skin and soft tissue of perineal wound Path [id number] Pain controlled with PO meds CV - AF, restart warfarin. Pacemaker. Hld, home statin. Htn, home meds. Hypotension - improved, monitor Gas and stool in appliance. Ostomy teaching. Regular diet Urethral stricture, appreciate Dr. Merino. Voiding spontaneously s/p pope removal ABLA - s/p 1u PRBC 06/03. H/H improved Wound dehiscence - wound vac in place, Amniofill under vac. Vac will remain in place x 1 week PPx - SCDs, IS. Lovenox contraindicated Dispo - PT/OT. SNF after DC. OR today. Additionally seen by Dr. Milligan. S - Increased confusion this morning, unsure if pain meds or lack of sleep/ extended hospital stay causing. Pain of perineal wound, controlled with PO meds O - laying in bed, comfortable, NAD no increased WOB +BS, soft, nondistended, nontender, incisions CDI Appliance + stool, ostomy pink with good profile Perineal wound vac intact to suction, min drainage in canister Objective: Vital Signs Temp Pulse Resp BP Pulse Ox 36.5 C 81 16 132/57 H 100 06/13/18 11:11 06/13/18 11:11 06/13/18 11:11 06/13/18 11:11 06/13/18 11:11 Laboratory Results 06/11/18 04:22 06/06/18 08:26 06/12/18 06/13/18 06/14/18 05:59 05:59 05:59 Intake Total 200 920 Output Total 615 527 500 Balance -415 393 -500 PT 18.2 SEC (12.0-15.0) H 06/13/18 04:39 INR 1.49 (0.83-1.16) H 06/13/18 04:39 ICD10 Worksheet Patient Problems: Problems Problem Status Onset Atrial fibrillation and flutter Acute Fracture of neck of femur Acute Hypertension Acute Left rib fracture Acute Coronary arteriosclerosis Chronic
[2018-06-13] MEDS: WARFARIN SODIUM 2 MG TAB PO SCH ×2 (15:15→16:49)
--- NOTE | 2018-06-13 15:19 | ASMTCMCOM ---
CM Note CM Note Notes: Chart reviewed for discharge planning. He is s/p abdominalperineal resection and then had to go back to OR for wound dehisence and wound vac placement. Updates to Jada at [facility]. Plan will be to go to [facility] upon discharge. Plan: Dc to snf when medically cleared for discharge Date Signed: 06/13/2018 03:18 PM Electronically Signed By:Oksana Fletcher RN
[2018-06-13] MEDS: PRAVASTATIN SODIUM 10 MG TAB PO SCH (16:48)
[2018-06-13] MEDS: MELATONIN 3 MG TAB PO SCH (20:54)
[2018-06-13] MEDS: BIMATOPROST 0.01% 2.5 ML OPHT.BTL EACHEYE SCH (20:55)
[2018-06-14] MEDS: ACETAMINOPHEN 325 MG TAB PO PRN ×3 (01:41→20:23)
[2018-06-14 05:40] LABS: INR 1.49 (0.83-1.16); PROTIME(PATIENT) 18.2 SEC (12.0-15.0)
[2018-06-14] MEDS: METOPROLOL TARTRATE 25 MG TAB PO SCH (08:28)
[2018-06-14] MEDS: SERTRALINE HCL 25 MG TAB PO SCH (08:29)
[2018-06-14] MEDS: BENAZEPRIL HCL 10 MG TAB PO SCH (08:29)
[2018-06-14] MEDS: FUROSEMIDE 20 MG TAB PO SCH (08:30)
[2018-06-14] MEDS: EYE EACHEYE SCH ×2 (08:31→20:23)
[2018-06-14] MEDS: DORZOLAMIDE 2% EACHEYE SCH ×2 (08:31→20:23)
[2018-06-14] MEDS: WARFARIN SODIUM 2 MG TAB PO SCH (16:58)
[2018-06-14] MEDS: PRAVASTATIN SODIUM 10 MG TAB PO SCH (18:20)
--- NOTE | 2018-06-14 19:30 | SOAPPROG ---
SOAP Progress Note Assessment/Plan: Assessment: 83 year old s/p APR for recurrent anal cancer with perineal wound dehiscence s/p EUA and wound vac placement Pain controlled with Tylenol Has gas and stool in appliance Regular diet Atrial Fibrillation Warfarin - Pacemaker Hyperlipidemia Home statin Hypertension Resumed home meds Hypotension Resolved Acute blood loss anemia resolved Urethral Stricture Appreciate Dr. ahuja assisting with Pope. No issues with voiding post pope removal S: No confusion today O: Lying in bed, good spirits CTAB Paced BS present, soft, Incisions cdi Gas and stool in appliance Perineal incision with wound vac Plan: 06/02/18 12:38 06/07/18 09:03 06/09/18 06:50 06/09/18 07:59 06/14/18 19:29 Objective: Vital Signs Temp Pulse Resp BP Pulse Ox 36.7 C 80 16 122/54 H 94 06/14/18 19:14 06/14/18 19:14 06/14/18 19:14 06/14/18 19:14 06/14/18 19:14 Laboratory Results 06/11/18 04:22 06/06/18 08:26 06/13/18 06/14/18 06/15/18 05:59 05:59 05:59 Intake Total 920 450 275 Output Total 527 1965 1230 Balance 178 -2191 -620 PT 18.2 SEC (12.0-15.0) H 06/14/18 04:38 INR 1.49 (0.83-1.16) H 06/14/18 04:38 ICD10 Worksheet Patient Problems: Problems Problem Status Onset Atrial fibrillation and flutter Acute Fracture of neck of femur Acute Hypertension Acute Left rib fracture Acute Coronary arteriosclerosis Chronic
[2018-06-14] MEDS: MELATONIN 3 MG TAB PO SCH (20:23)
[2018-06-14] MEDS: BIMATOPROST 0.01% 2.5 ML OPHT.BTL EACHEYE SCH (20:23)
[2018-06-15 05:53] LABS: PLATELET COUNT 375 10^3/uL (150-400)
[2018-06-15 05:59] LABS: INR 1.6 (0.83-1.16); PROTIME(PATIENT) 19.2 SEC (12.0-15.0)
[2018-06-15] MEDS: ACETAMINOPHEN 325 MG TAB PO PRN ×2 (10:16→16:42)
[2018-06-15] MEDS: SERTRALINE HCL 25 MG TAB PO SCH (10:17)
[2018-06-15] MEDS: BENAZEPRIL HCL 10 MG TAB PO SCH (10:17)
[2018-06-15] MEDS: FUROSEMIDE 20 MG TAB PO SCH (10:18)
[2018-06-15] MEDS: DORZOLAMIDE 2% EACHEYE SCH ×2 (10:19→20:50)
[2018-06-15] MEDS: EYE EACHEYE SCH ×2 (10:19→20:50)
[2018-06-15] MEDS: METOPROLOL TARTRATE 25 MG TAB PO SCH (10:21)
--- NOTE | 2018-06-15 10:35 | SOAPPROG ---
SOAP Progress Note Assessment/Plan: Assessment/Plan: 83yo M POD s/p APR and end colostomy for recurrent anal cancer , s/p debridement skin and soft tissue of perineal wound Path [id number] Pain controlled with PO meds CV - AF, warfarin. Pacemaker. Hld, home statin. Htn, home meds. Hypotension - improved, monitor Gas and stool in appliance. Ostomy teaching. Regular diet Urethral stricture, appreciate Dr. Merino. Condom cath. Improved scrotal swelling ABLA - s/p 1u PRBC 06/03. H/H improved Wound dehiscence - wound vac in place, Amniofill under vac. Vac will remain in place, change on Monday prior to DC PPx - SCDs, IS. Lovenox contraindicated Dispo - PT/OT. SNF after DC with likely DC Monday after vac change. Additionally seen by Dr. Milligan. S - Confusion improved. Pain of perineal wound worse with activity, controlled with PO meds O - Sitting upright in chair eating breakfast, comfortable, NAD no increased WOB +BS, soft, nondistended, nontender, incisions CDI Appliance + stool, ostomy pink with good profile Perineal wound vac intact to suction, no surrounding erythema or induration, drainage in canister Objective: Vital Signs Temp Pulse Resp BP Pulse Ox 36.4 C 92 16 116/53 L 95 06/15/18 09:37 06/15/18 10:21 06/15/18 09:37 06/15/18 10:21 06/15/18 09:37 Laboratory Results 06/15/18 04:54 06/15/18 04:54 06/14/18 06/15/18 06/16/18 05:59 05:59 05:59 Intake Total 450 275 Output Total 4564 569 Balance -1515 -1655 PT 19.2 SEC (12.0-15.0) H 06/15/18 04:54 INR 1.60 (0.83-1.16) H 06/15/18 04:54 ICD10 Worksheet Patient Problems: Problems Problem Status Onset Atrial fibrillation and flutter Acute Fracture of neck of femur Acute Hypertension Acute Left rib fracture Acute Coronary arteriosclerosis Chronic
--- NOTE | 2018-06-15 12:49 | ASMTCMCOM ---
CM Note CM Note Notes: Per surgery note, patient will likely d/c Monday 06/18 after wound vac change. I notified [facility]. Date Signed: 06/15/2018 12:48 PM Electronically Signed By:Theresa Azar RN
[2018-06-15] MEDS: WARFARIN SODIUM 2 MG TAB PO SCH (16:37)
[2018-06-15] MEDS: PRAVASTATIN SODIUM 10 MG TAB PO SCH (17:54)
[2018-06-15] MEDS: MELATONIN 3 MG TAB PO SCH (20:50)
[2018-06-15] MEDS: BIMATOPROST 0.01% 2.5 ML OPHT.BTL EACHEYE SCH (20:51)
--- NOTE | 2018-06-16 08:44 | SOAPPROG ---
SOAP Progress Note Assessment/Plan: Assessment: 83yo M s/p APR, perineal wound dehiscence and washout c VAC - VSS, HDS - tolerating diet, abdomen is soft with good ostomy output - VAC holding suction to perineal area, no surrounding erythema. - VAC change Monday, SNF planning early next week - PT/OT Plan: 06/16/18 08:43 Subjective: no complaints, thought it was Monday Objective: Vital Signs Temp Pulse Resp BP Pulse Ox 36.6 C 81 16 148/68 H 93 06/16/18 08:25 06/16/18 08:25 06/16/18 08:25 06/16/18 08:25 06/16/18 08:25 Laboratory Results 06/15/18 04:54 06/15/18 04:54 06/15/18 06/16/18 06/17/18 05:59 05:59 05:59 Intake Total 275 500 Output Total 1930 1030 Balance -1655 -530 PT 19.2 SEC (12.0-15.0) H 06/15/18 04:54 INR 1.60 (0.83-1.16) H 06/15/18 04:54 ICD10 Worksheet Patient Problems: Problems Problem Status Onset Atrial fibrillation and flutter Acute Fracture of neck of femur Acute Hypertension Acute Left rib fracture Acute Coronary arteriosclerosis Chronic
[2018-06-16] MEDS: FUROSEMIDE 20 MG TAB PO SCH (12:14)
[2018-06-16] MEDS: BENAZEPRIL HCL 10 MG TAB PO SCH (12:14)
[2018-06-16] MEDS: SERTRALINE HCL 25 MG TAB PO SCH (12:14)
[2018-06-16] MEDS: METOPROLOL TARTRATE 25 MG TAB PO SCH (12:15)
[2018-06-16] MEDS: ACETAMINOPHEN 325 MG TAB PO PRN ×2 (12:18→18:40)
[2018-06-16] MEDS: DORZOLAMIDE 2% EACHEYE SCH ×2 (12:21→21:01)
[2018-06-16] MEDS: EYE EACHEYE SCH ×2 (12:21→21:01)
[2018-06-16] MEDS: PRAVASTATIN SODIUM 10 MG TAB PO SCH (18:41)
[2018-06-16] MEDS: WARFARIN SODIUM 2 MG TAB PO SCH (18:42)
[2018-06-16] MEDS: BIMATOPROST 0.01% 2.5 ML OPHT.BTL EACHEYE SCH (21:01)
[2018-06-16] MEDS: MELATONIN 3 MG TAB PO SCH (21:02)
[2018-06-17 05:08] LABS: INR 1.93 (0.83-1.16); PROTIME(PATIENT) 22.1 SEC (12.0-15.0)
[2018-06-17] MEDS: SERTRALINE HCL 25 MG TAB PO SCH (09:13)
[2018-06-17] MEDS: BENAZEPRIL HCL 10 MG TAB PO SCH (09:13)
[2018-06-17] MEDS: EYE EACHEYE SCH ×2 (09:14→20:53)
[2018-06-17] MEDS: DORZOLAMIDE 2% EACHEYE SCH ×2 (09:14→20:53)
[2018-06-17] MEDS: FUROSEMIDE 20 MG TAB PO SCH (09:14)
[2018-06-17] MEDS: METOPROLOL TARTRATE 25 MG TAB PO SCH (09:14)
[2018-06-17] MEDS: ACETAMINOPHEN 325 MG TAB PO PRN ×2 (09:17→15:51)
--- NOTE | 2018-06-17 11:44 | SOAPPROG ---
SOAP Progress Note Assessment/Plan: Assessment: 83yo M s/p APR, perineal wound dehiscence and washout c VAC - VSS, HDS - tolerating diet, abdomen is soft with good ostomy output - perineal area examined, skin surrounding looks good. - VAC change tomorrow, this will determine when he goes to SNF. If goes well and looks good, anticipate he can go early next week Plan: 06/16/18 08:43 06/17/18 11:43 Subjective: feels well, wants to know the plan Objective: Vital Signs Temp Pulse Resp BP Pulse Ox 36.6 C 78 16 146/63 H 94 06/17/18 07:37 06/17/18 09:14 06/17/18 07:37 06/17/18 09:14 06/17/18 07:37 Laboratory Results 06/15/18 04:54 06/15/18 04:54 06/16/18 06/17/18 06/18/18 05:59 05:59 05:59 Intake Total 500 650 Output Total 1080 1560 Balance -580 -910 PT 22.1 SEC (12.0-15.0) H 06/17/18 04:00 INR 1.93 (0.83-1.16) H 06/17/18 04:00 ICD10 Worksheet Patient Problems: Problems Problem Status Onset Atrial fibrillation and flutter Acute Fracture of neck of femur Acute Hypertension Acute Left rib fracture Acute Coronary arteriosclerosis Chronic
[2018-06-17] MEDS: ONDANSETRON DISINTEGRATING 4 MG TAB PO PRN (15:50)
[2018-06-17] MEDS: WARFARIN SODIUM 2 MG TAB PO SCH (15:50)
[2018-06-17] MEDS: PRAVASTATIN SODIUM 10 MG TAB PO SCH (18:28)
[2018-06-17] MEDS: BIMATOPROST 0.01% 2.5 ML OPHT.BTL EACHEYE SCH (20:53)
[2018-06-17] MEDS: MELATONIN 3 MG TAB PO SCH (20:53)
[2018-06-18 04:37] LABS: PLATELET COUNT 356 10^3/uL (150-400)
[2018-06-18 04:44] LABS: INR 2.16 (0.83-1.16); PROTIME(PATIENT) 24.1 SEC (12.0-15.0)
[2018-06-18 07:39] VITALS: BP 154/75
[2018-06-18] MEDS: HYDROCODONE/APAP 5/325 TAB PO PRN ×2 (08:30→12:31)
[2018-06-18] MEDS: BENAZEPRIL HCL 10 MG TAB PO SCH (09:00)
[2018-06-18] MEDS: METOPROLOL TARTRATE 25 MG TAB PO SCH (09:00)
[2018-06-18] MEDS: FUROSEMIDE 20 MG TAB PO SCH (09:00)
[2018-06-18] MEDS: SERTRALINE HCL 25 MG TAB PO SCH (09:01)
--- NOTE | 2018-06-18 09:07 | SOAPPROG ---
SOAP Progress Note Assessment/Plan: Assessment/Plan: 83yo M POD s/p APR and end colostomy for recurrent anal cancer , s/p debridement skin and soft tissue of perineal wound Path [id number] Pain controlled with PO meds CV - AF, warfarin. Pacemaker. Hld, home statin. Htn, home meds. Hypotension - improved, monitor Gas and stool in appliance. Ostomy teaching. Regular diet Urethral stricture, appreciate Dr. Merino. Condom cath. Improved scrotal swelling ABLA - s/p 1u PRBC 06/03. H/H improved Wound dehiscence - wound vac changed today with Amniofill under vac. Vac will remain in place x 1 week PPx - SCDs, IS. Lovenox contraindicated Dispo - PT/OT. DC to SNF today with f/u in 1 week for wound check S - Pain of perineal wound worse with activity, controlled with PO meds O - Laying in bed, comfortable, NAD no increased WOB Soft, nondistended, nontender, incisions CDI Appliance + stool, ostomy pink with good profile Perineal wound measures 7 x 3.5 x 6.5cm with 75% granulation tissue, slough in deepest aspect of wound - not debrided at bedside. Applied amniofill 1000mg AF10 -[id number] exp 09/21/22 followed by wound vac sponge and bridge dressing Objective: Vital Signs Temp Pulse Resp BP Pulse Ox 36.4 C 91 16 154/75 H 94 06/18/18 07:38 06/18/18 07:38 06/18/18 07:38 06/18/18 07:38 06/18/18 07:38 Laboratory Results 06/18/18 04:06 06/18/18 04:06 06/17/18 06/18/18 06/19/18 05:59 05:59 05:59 Intake Total 650 250 Output Total 1560 755 Balance -910 -505 PT 24.1 SEC (12.0-15.0) H 06/18/18 04:06 INR 2.16 (0.83-1.16) H 06/18/18 04:06 ICD10 Worksheet Patient Problems: Problems Problem Status Onset Atrial fibrillation and flutter Acute Fracture of neck of femur Acute Hypertension Acute Left rib fracture Acute Coronary arteriosclerosis Chronic
--- NOTE | 2018-06-18 09:07 | WOCRNPDOC ---
MICHAEL Advanced Assessment Note - Skin Integrity Problem, Advanced Assess Perianal Surgical Wound/Incision Dressing Type: Wound Vac Dressing Description: Clean/Dry, Intact Exudate Amount: Scant Exudate Characteristic(s): Sanguinous Integumentary Issue Intervention: Dressing Changed Ginger Wound Tissue: Erythema Wound Bed Constitution: Granulation Tissue (75%) Site Measurement - Head-to-Toe Length X Width X Depth (cm): 7x3.5x6.5 Skin Integrity Problem Comment: Assisted with wound vac change with Gina PHELPS. Wound edges appear healthy, but base of wound appears white/ulrich and likely necrotic. She placed one piece of black bridge foam to wound bed after application of 1000 mg Amniofill skin tissue substitute. Vac restarted at - 125mm Hg continuous suction without leaks. Bridge dressing used. Rn's Brit and Mary in room for change as well.
[2018-06-18] MEDS: DORZOLAMIDE 2% EACHEYE SCH (09:35)
[2018-06-18] MEDS: EYE EACHEYE SCH (09:35)
--- NOTE | 2018-06-18 10:38 | PDIAF ---
- Diagnosis Diagnosis: recurrent anal cancer Code Status: Full Code - Medication Management Discharge Medications: Medications to Continue on Transfer Albuterol [Proventil Inhaler HFA (*)] 1 - 2 puffs IH Q4H PRN 02/13/18 [Last Taken 05/31/18] Aspirin [Aspirin 81mg (*)] 81 mg PO DAILY 02/13/18 [Last Taken 05/31/18] Benazepril HCl 5 mg PO DAILY 02/13/18 [Last Taken 05/31/18] Bimatoprost 0.01% [Lumigan 0.01% (*)] 1 drops EACHEYE HS 02/13/18 [Last Taken ] C/E/Zn/Cu/OM3/DHA/EPA/LUT/ZEAX [Preservision Areds 2 Softgel] 1 each PO DAILY [Last Taken 05/31/18] Cholecalciferol Vit D3 [Vitamin D3 (*)] 1,000 units PO DAILY 02/13/18 [Last Taken 05/31/18] Furosemide [Lasix 20 MG (*)] 20 mg PO DAILY 02/13/18 [Last Taken 05/31/18] Metoprolol Tartrate [Lopressor 25 mg (*)] 25 mg PO DAILY 02/13/18 [Last Taken ] Sertraline HCl [Zoloft 25mg (*)] 25 mg PO DAILY 02/13/18 [Last Taken 06/01/18] Simvastatin [Zocor] 10 mg PO Q2D 02/13/18 [Last Taken 05/31/18] Simvastatin [Zocor] 20 mg PO Q2D 02/13/18 [Last Taken 06/01/18] Warfarin Sodium [Coumadin 2MG (*)] 2 mg PO DAILY@1600 02/13/18 [Last Taken 05/28] Melatonin/Pyridoxine [Melatonin 5 mg Tablet] 1 each PO HS 05/18/18 [Last Taken 1 Week Ago ~05/25/18] Dorzolamide HCl/Pf [Dorzolamide 2% Eye Drop] 1 drop EACHEYE BID 06/01/18 [Last Taken Unknown] Acetaminophen [Tylenol 325mg (*)] 650 mg PO Q6 PRN tab 06/18/18 [Last Taken Unknown] Hydrocodone/APAP 5/325 [[place] 5/325 (*)] 1 - 2 tab PO Q4 PRN #30 tab 06/18/18 [ Last Taken Unknown] Chcf Antibiotics: none Discharge Medications: Refer to the Discharge Home Medication list for PRN reason. PICC Care - Routine: N/A - Orders Services needed: Home Care, Registered Nurse, Certified Wireless Engineer, Physical Therapy, Occupational Therapy Home Care Face to Face: I certify that this patient was under my care and that I had the required [id number] encounter meeting the encounter requirements on the discharge day. My findings support the fact that the patient is homebound as defined in Home Care Face to Face Continued: CMS Chapter 7 Medicare Benefits Manual 30.1.1 , The condition of the patient is such that there exists a normal inability to leave home and consequently, leaving home would require a considerable and taxing effort. Isolation Type: None Diet Recommendation: no restrictions on diet Diet Texture: Regular Texture Diet, Thin Liquids, Meds Whole in Puree Wound Care Instructions: See DC instructions - wound vac in place x 1 week, then likely will change to MWF Activity/Weight Bearing Restrictions: No heavy lifting, pushing or pulling > 15lb x 6 weeks after surgery Additional Instructions: Ostomy discharge information: Your current appliance size is a 2 3/4 inch or 70 mm. When you go home we understand that at first you may feel overwhelmed by all the choices and questions. Also with the samples if you have received samples from different companies. The ostomy nurses recommend that you continue with the appliance you were discharged with when you left the hospital for a month or two to adjust to the appliance. If however you have problems with leaking or itching under your faceplate/wafer, you may want to try some different samples from other companies or contact the outpatient ostomy nurses at [facility].~ After you have adjusted to your stoma and feel ready, then you may look at the features of the new appliances and see if there is one that you like the look/feel/performance of better. There are 3 main ostomy supply companies out there: [employer], [employer] and [employer] all with varying features and options. If you have any leaking or pouching issues, or just need some questions answered , we recommend a consultation with our outpatient ostomy nurses. You can reach them at [phone] at the [facility]. Please note that they are often scheduled several weeks out. Also as a reminder please use the resources in your teaching book for ostomy questions and answers. [employer] is a great resource for some things, but not ostomy care. Also WOCN.org (The Wound Ostomy Continence Nurses society) has a new online and yusuf that helps troubleshoot peristomal problems. You may find it under: http://psag-consumer.wocn.org/# home or just go to the WOC[employer]org home page. Lisa Bartlett RN Wound Care Team Wound vac instructions: Keep wound vac dressing in place continuously at -125mmHg until 06/26/18 - there is Amniofill under the vac so it does not need to be changed x 1 week. We will change the wound vac at his next visit on 06/26/18, please provide patient with supplies for change (bridge dressing sponge and canister). Do not get dressing wet. Offload pressure from area. Call our office with worsening symptoms, questions or concerns - Follow Up Care Current Providers and Referrals: Anne Espinoza MD [Primary Care Provider] - Leanna Milligan MD [Medical Doctor] - 06/26/18 (Call office to set up appointment time)
--- NOTE | 2018-06-18 12:34 | ASMTLACE ---
LACE Length of stay for Answers: 14 days or more current admission Comorbidities - select Answers: Any tumor (including all that apply lymphoma or leukemia) Chronic pulmonary disease Coronary Artery Disease Score: 13 Date Signed: 06/18/2018 12:34 PM Electronically Signed By:Oksana Fletcher RN
[2018-06-18] MEDS: WARFARIN SODIUM 2 MG TAB PO SCH (14:32)
--- NOTE | 2018-06-18 17:31 | POSTOPPROG ---
Post Op Note Date of Operation: 06/07/18 Surgeon: Josué Padgett Anesthesia: Local (Specify) Pre-op Diagnosis: DRAINING PERINEAL HEMATOMA Post-op Diagnosis: SAME Indication: POSSIBLE INFECTION Procedure: I AND D OF PERINEAL HEMATOMA Findings: MODERATE OLD HEMATOMA WITH NO DEFINITE SIGNS OF INFECTION SEEPING THROUGH P Inf/Abcess present in the surg proc area at time of surgery?: No Depth: Deep Incisional (Fascial) EBL: Minimal Complications: NONE Drains: [place]
--- NOTE | 2018-06-29 15:03 | PQFORM ---
COUMADIN RESUMPTION PHYSICIAN QUERY FORM Needs Your Response This query form is being sent to you to assure this patient record is coded properly. Please respond to the question below: VINE PRUNER QUESTION: Dear Dr. Padgett On 06/07/18 the patient a postoperative hematoma incised and drained. The coding may be able to be more specific if a contributing cause of the hematoma could be identified: Chronic Thrombocytopenia Resumption of Coumadin 2 days prior to Hematoma collection Other Reason Clinically unable to determine Thank you, Ailin Matias, [facility] [place], CD[employer], B.S. Press Operator [employer]. INSTRUCTIONS FOR RESPONSE: Answer question by clicking on the "Edit Document" button. Move cursor to area below the stars. When complete, hit "Save." Click on the "Sign" button, then click "Sign" again. Type in your PIN and hit "Enter." COUMADIN RESUMPTION MTDD
--- NOTE | 2018-07-03 09:05 | GDS ---
ADMITTING DIAGNOSIS: Recurrent anal cancer. SECONDARY DIAGNOSES: 1. Atrial fibrillation. 2. Coronary artery disease. 3. History of prostate cancer. 4. Hyperlipidemia. 5. Hypertension. 6. Macular degeneration. 7. Urethral stricture. 8. Postoperative hypotension, resolved. 9. Acute blood loss anemia, postoperatively, resolved. 10. Postoperative hematoma with wound dehiscence. REASON FOR ADMISSION: This is an 83-year-old man with anal cancer, status post chemo and radiation, who developed a recurrence. He presents at this time for surgical intervention. HOSPITAL COURSE: He was taken to the operating room by Dr. Leanna Milligan on 06/01/2018, for robotic AP R with end colostomy. Final pathology from the surgery revealed a Y pT1 pN0. He had a Peck cathete r placed at the time of surgery, which remained in place for 5 days postoperatively. In addition, he had a REID drain placed, which was removed on the day of discharge. Through his hospital course he re ceived ostomy education and teaching. On postoperative day #3, he was advanced to a regular diet and had full return of bowel function through the colostomy. On 06/03/2018, he received 1 unit of packe d red blood cells for acute blood loss anemia. On 06/07/2018, he underwent incision and drainage of a hematoma of his perineal wound at bedside. A [place] drain was placed. Old blood was evacuated. On 06/12/2018, he was taken to the operating room for debridement of skin and soft tissue of the kaden tanna wound with wound VAC placement. At the time of surgery, and micronized EpiFix were p laced in the base of the wound. On the day of discharge, 06/18/2018, he had a wound VAC changed with again placement of in the base of the wound and wound VAC placement. He worked with [facility] and Occupational Therapy throughout his hospital stay and on the day of discharge was ready for discharge to a [place] [facility] facility. CONDITION: He is being discharged from the hospital in stable condition. Pain is controlled with or al pain medication, tolerating a regular diet, ambulating with assistance. DISCHARGE MEDICATIONS: He was sent home with a prescription for [place]. Instructed to take Tylenol o [id number] and resume home medications. Please see EMR for further details. DISCHARGE INSTRUCTIONS AND FOLLOWUP: He will follow up with Dr. Leanna Milligan in 1 week for a wound VA C change. He will offload pressure from the area. Call with worsening symptoms, questions, or denise rns. /[id number]/MODL
== END 2018-06-18 14:47 | DRG 330 ==
LOC: F3E 05:48 → F2N 15:05 → F1N 06-04 15:09
PROVIDERS: ADMIT Surgery; ATTEND Surgery
PROC: 0DTP4ZZ Resection of Rectum, Percutaneous Endoscopic Approach (ICD-10-PCS; principal; 2018-06-01 07:15)
PROC: 0T9B70Z Drainage of Bladder with Drainage Device, Via Natural or Artificial Opening (ICD-10-PCS; principal; 2018-06-01 07:15)
PROC: 0DTQ4ZZ Resection of Anus, Percutaneous Endoscopic Approach (ICD-10-PCS; principal; 2018-06-01 07:15)
PROC: 0T7D7ZZ Dilation of Urethra, Via Natural or Artificial Opening (ICD-10-PCS; principal; 2018-06-01 07:15)
PROC: 8E0W4CZ Robotic Assisted Procedure of Trunk Region, Percutaneous Endoscopic Approach (ICD-10-PCS; principal; 2018-06-01 07:15)
PROC: 0D1N0Z4 Bypass Sigmoid Colon to Cutaneous, Open Approach (ICD-10-PCS; principal; 2018-06-01 07:15)
PROC: 30233N1 Transfusion of Nonautologous Red Blood Cells into Peripheral Vein, Percutaneous Approach (ICD-10-PCS; 2018-06-03)
PROC: 0W9M00Z Drainage of Male Perineum with Drainage Device, Open Approach (ICD-10-PCS; 2018-06-18)
DX: C21.0 Malignant neoplasm of anus, unspecified (principal); D62 Acute posthemorrhagic anemia; L76.32 Postprocedural hematoma of skin and subcutaneous tissue following other procedure; D68.318 Other hemorrhagic disorder due to intrinsic circulating anticoagulants, antibodies, or inhibitors; N32.0 Bladder-neck obstruction; I48.91 Unspecified atrial fibrillation; I77.9 Disorder of arteries and arterioles, unspecified; I25.10 Atherosclerotic heart disease of native coronary artery without angina pectoris; I10 Essential (primary) hypertension; E78.5 Hyperlipidemia, unspecified; Z95.0 Presence of cardiac pacemaker; Z95.1 Presence of aortocoronary bypass graft; Z79.01 Long term (current) use of anticoagulants
CPT/HCPCS: 92507-GN; 92523-GN; 92526-GN; 92610-GN; 97110-GP; 97116-GP; 97163-GP; 97164-GP; 97166-GO; 97530-GO; 97530-GP; 97535-GO; C9399; G0515-GN; G8978-GP-CK; G8978-GP-CM; G8979-GP-CI; G8979-GP-CJ; G8987-GO-CK; G8987-GO-CL; G8988-GO-CI; G8996-GN-CL; G8997-GN-CI; G9165-GN-CI; G9165-GN-CJ; G9166-GN-CI; G9167-GN-CI; J0694; J0696; J1100; J1170; J2250; J2405; J2704; J2710; J3010; J7613; P9016; Q4145

== ENCOUNTER 2018-12-09 19:51 | Inpatient (IN) | payer OTHER ==
[~2018-12-09 19:51] MED LIST changes: +FUROSEMIDE 20 MG/2 ML VIAL IVP ONE; -LR 1,000 ML IV ONE; -cefOXitin SODIUM 2 GM in NS 100 ML IV ONE
--- NOTE | 2018-12-09 19:58 | EDPHY ---
H & P Stated Complaint: SOB CAUSING ANXIETY Time Seen by Provider: 12/09/18 19:57 - Personal History Tetanus Vaccine Date: < 10 YEARS - Medical/Surgical History Hx Asthma: No Hx Chronic Respiratory Disease: Yes Hx Diabetes: No Hx Cardiac Disease: Yes Hx Renal Disease: No Hx Cirrhosis: No Hx Alcoholism: No Hx HIV/AIDS: No Hx Splenectomy or Spleen Trauma: No Other PMH: Afib, Hx of DVT, Hx of bypass (2002), implanted pacer, HTN, COPD. Hx of prostate CA in 2000, glaucoma, cataract sx, broken hip/replacement August 2013, anal cancer , syncopal episodes, COLOSTOMY - Social History Smoking Status: Former smoker Constitutional: Initial Vital Signs Temperature (C) 36.4 C 12/09/18 19:56 Heart Rate 79 12/09/18 19:56 Respiratory Rate 20 12/09/18 19:56 Blood Pressure 123/70 H 12/09/18 19:56 O2 Sat (%) 95 12/09/18 19:56 O2 Delivery Mode Room Air Allergies/Adverse Reactions: No Known Allergies Allergy (Verified 05/28/18 17:00) Home Medications: Medication Instructions Recorded Albuterol [Proventil Inhaler HFA 1 - 2 puffs IH Q4H PRN 02/13/18 (*)] Aspirin [Aspirin 81mg (*)] 81 mg PO DAILY 02/13/18 Benazepril HCl 5 mg PO DAILY 02/13/18 Bimatoprost 0.01% [Lumigan 0.01% 1 drops EACHEYE HS 02/13/18 (*)] C/E/Zn/Cu/OM3/DHA/EPA/LUT/ZEAX 1 each PO DAILY 02/13/18 [Preservision Areds 2 Softgel] Cholecalciferol Vit D3 [Vitamin D3 1,000 units PO DAILY 02/13/18 (*)] Furosemide [Lasix 20 MG (*)] 20 mg PO DAILY 02/13/18 Metoprolol Tartrate [Lopressor 25 25 mg PO DAILY 02/13/18 mg (*)] Sertraline HCl [Zoloft 25mg (*)] 25 mg PO DAILY 02/13/18 Simvastatin [Zocor] 10 mg PO Q2D 02/13/18 Simvastatin [Zocor] 20 mg PO Q2D 06/26/18 Warfarin Sodium [Coumadin 2MG (*)] 2 mg PO DAILY@1600 02/13/18 Melatonin/Pyridoxine [Melatonin 5 1 each PO HS 05/18/18 mg Tablet] Dorzolamide HCl/Pf [Dorzolamide 2% 1 drop EACHEYE BID 06/01/18 Eye Drop] Acetaminophen [Tylenol 325mg (*)] 650 mg PO Q6 PRN tab 06/18/18 Hydrocodone/APAP 5/325 [[place] 1 - 2 tab PO Q4 PRN #30 tab 06/18/18 5/325 (*)] Medical Decision Making - Diagnostics Imaging Results: Imaging Impressions Chest X-Ray 12/09/18 20:02 Impression: Cardiomegaly post cardiac interventions, with mild features of acute congestive heart failure.. Chest/Thorax CTA 12/09/18 20:46 Impression: 1. Negative CT examination of the chest for acute pulmonary thromboembolic disease. 2. Mild congestive heart failure with small right pleural effusion. 3. Hiatal hernia Results called to Dr. Jean Longoria at 9:20 PM at the time of the interpretation. Imaging: Discussed imaging studies w/ call center associate Radiologist, I viewed and interpreted images myself ED Course/Re-evaluation: CHIEF COMPLAINT: Shortness of breath HISTORY OF PRESENT ILLNESS: The patient is an 83 y/o male with a history of a-fib, CABG, pacemaker, COPD, and a colostomy complaining of shortness of breath. The patient was eating 2.5 hours ago when he ate something and then became short of breath. Due to the shortness of breath he also feels anxious. Due to the shortness of breath and anxiety he decided to present to the emergency department. No fever, headache, body aches, lightheadedness, chest pain, heart palpitations, abdominal pain, urinary or bowel complaints, numbness, paresthesias. REVIEW OF SYSTEMS: A comprehensive 10 system review of systems is otherwise negative aside from elements mentioned in the history of present illness and medical decision making. PHYSICAL EXAM: HR, BP, O2 Sat, RR. Temp noted General Appearance: Alert, well hydrated, appropriate, and non-toxic appearing. Head: Atraumatic without scalp tenderness or obvious injury Eyes: Pupils equal, round, reactive to light and accommodation, EOMI, no trauma , no injection. Ears: Clear bilaterally, no perforation, normal landmarks Nose: Atraumatic, no rhinorrhea, clear. Throat: There is no erythema or exudates, no lesions, normal tonsils, mucus membranes moist. Neck: Supple, 2+ carotid upstroke, nontender, no lymphadenopathy. Respiratory: Not moving air well. No retractions, no distress, no wheezes, and no accessory muscle use. Lungs are clear to auscultation bilaterally. Cardiovascular: Regular rate and rhythm, no murmurs, rubs, or gallops. Bilateral carotid, radial, dorsalis pedis, and posterior tibial pulses intact. Good capillary refill all extremities. Gastrointestinal: Colostomy bag in place. Abdomen is soft, nontender, non- distended, no masses, no rebound, no guarding, no peritoneal signs. Musculoskeletal: Normal active ROM of all extremities, atraumatic. Neurological: Alert, appropriate, and interactive. The patient has normal DTRs and non-focal cranial nerves, motor, sensory, and cerebellar exam. Skin: No rashes, good turgor, no nodules on palpation. Past medical history:A-fib, DVT, CABG (2002), implanted pacer, HTN, COPD, history of prostate CA in 2000, glaucoma, cataract surgery, broken hip/ replacement August 2013, anal cancer, syncopal episodes, colostomy Family history: Denies Social history: Daughter at bedside, retired, lives in [place], former smoker DIAGNOSTICS/PROCEDURES/CRITICAL CARE TIME: Chest x-ray: Cardiomegaly post cardiac interventions, with mild features of acute congestive heart failure.. Chest CTA: CHF exacerbation, small right effusion DIFFERENTIAL DIAGNOSIS: The differential diagnosis for the patient's shortness of breath and hypoxemia included but was not limited to pneumonia, myocardial infarction, acute mountain sickness, high altitude pulmonary edema, congestive heart failure, and pulmonary embolus. MEDICAL DECISION MAKING: The patient is an 83 y/o male with a history of a-fib, CABG, pacemaker, COPD, and a colostomy complaining of shortness of breath and anxiety after eating something. On exam he is not moving air well. Chest x-ray and labs ordered; DuoNeb administered. 2021: Patient's labs reveal chronic anemia. 2046: Patient has an elevated d-dimer; chest CTA ordered. 2109: Patient has an elevated BNP, but this is lower than normal. Chest CTA still pending. 2123: I spoke with Dr. Tran, radiologist, regarding the chest CTA. The patient has a right pleural effusion and CHF exacerbation. He will need to be admitted for this. 2130: I consulted with the hospitalist service, Dr. Luna accepts admission of this patient. - Data Points Laboratory Results: Laboratory Results 12/09/18 20:05 12/09/18 20:05 12/09/18 12/09/18 12/09/18 20:05 20:05 20:05 WBC RBC Hgb Hct MCV MCH MCHC RDW Plt Count MPV Neut % (Auto) Lymph % (Auto) [place] % (Auto) Eos % (Auto) Baso % (Auto) Nucleat RBC Rel Count Absolute Neuts (auto) Absolute Lymphs (auto) Absolute Monos (auto) Absolute Eos (auto) Absolute Basos (auto) Absolute Nucleated RBC Immature Gran % Immature Gran # Platelet Estimate Polychromasia Hypochromasia Microcytic Cells Oval Macrocytes Elliptocytes Keratocytes D-Dimer 0.73 ug/mLFEU H ug/mLFEU (0.00-0.50) Sodium 140 mEq/L mEq/L (135-145) Potassium 4.7 mEq/L mEq/L (3.5-5.2) Chloride 107 mEq/L mEq/L (97-110) Carbon Dioxide 23 mEq/l mEq/l (22-31) Anion Gap 10 mEq/L mEq/L (6-14) BUN 32 mg/dL H mg/dL (7-23) Creatinine 1.3 mg/dL mg/dL (0.7-1.3) Estimated GFR 53 Glucose 89 mg/dL mg/dL (70-100) Calcium 9.0 mg/dL mg/dL (8.5-10.4) NT-Pro-B Natriuret Pep 3530 pg/mL H pg/mL (0-450) 12/09/18 20:05 WBC 5.60 10^3/uL 10^3/uL (3.80-9.50) RBC 2.92 10^6/uL L 10^6/uL (4.40-6.38) Hgb 9.6 g/dL L g/dL (13.7-17.5) Hct 30.9 % L % (40.0-51.0) MCV 105.8 fL H fL (81.5-99.8) MCH 32.9 pg pg (27.9-34.1) MCHC 31.1 g/dL L g/dL (32.4-36.7) RDW 18.1 % H % (11.5-15.2) Plt Count 174 10^3/uL 10^3/uL (150-400) MPV 10.1 fL fL (8.7-11.7) Neut % (Auto) 73.0 % % (39.3-74.2) Lymph % (Auto) 14.6 % L % (15.0-45.0) [place] % (Auto) 9.8 % % (4.5-13.0) Eos % (Auto) 1.8 % % (0.6-7.6) Baso % (Auto) 0.4 % % (0.3-1.7) Nucleat RBC Rel Count 0.0 % % (0.0-0.2) Absolute Neuts (auto) 4.09 10^3/uL 10^3/uL (1.70-6.50) Absolute Lymphs (auto) 0.82 10^3/uL L 10^3/uL (1.00-3.00) Absolute Monos (auto) 0.55 10^3/uL 10^3/uL (0.30-0.80) Absolute Eos (auto) 0.10 10^3/uL 10^3/uL (0.03-0.40) Absolute Basos (auto) 0.02 10^3/uL 10^3/uL (0.02-0.10) Absolute Nucleated RBC 0.00 10^3/uL 10^3/uL (0-0.01) Immature Gran % 0.4 % % (0.0-1.1) Immature Gran # 0.02 10^3/uL 10^3/uL (0.00-0.10) Platelet Estimate ADEQUATE (ADEQ) Polychromasia 1+ H Hypochromasia 1+ H Microcytic Cells 1+ H Oval Macrocytes 1+ H Elliptocytes 1+ H Keratocytes 1+ H D-Dimer Sodium Potassium Chloride Carbon Dioxide Anion Gap BUN Creatinine Estimated GFR Glucose Calcium NT-Pro-B Natriuret Pep Medications Given: Discontinued Medications Albuterol/Ipratropium (Duoneb) 3 ml IH EDNOW ONE Stop: 12/09/18 20:03 Last Admin: 12/09/18 20:14 Dose: 3 ml Departure - Departure Disposition: [facility] Inpatient Acute Clinical Impression: Pleural effusion, right Acute exacerbation of congestive heart failure Qualifiers: Heart failure type: unspecified Qualified Code(s): I50.9 - Heart failure, unspecified Condition: Fair Referrals: Anne Espinoza MD [Primary Care Provider] - As per Instructions Report Scribed for: Jean Longoria Report Scribed by: Rachel Spears Date of Report: 12/09/18 Time of Report: 20:00
[2018-12-09] MEDS ORDERED: IPRATROPIUM/ALBUTEROL 3 ML DEYVIAL IH ONE (20:02)
[2018-12-09 20:16] LABS: PLATELET COUNT 174 10^3/uL (150-400)
[2018-12-09] MEDS ORDERED: IOPAMIDOL (ISOVUE 370) 100 ML BTL IV ONE (20:48)
[2018-12-09] MEDS ORDERED: ALBUTEROL 3 ML DEYVIAL IH PRN (22:19)
[2018-12-09] MEDS ORDERED: ACETAMINOPHEN 325 MG TAB PO PRN (22:19)
[2018-12-09] MEDS ORDERED: ONDANSETRON 4 MG/2 ML VIAL IVP PRN (22:19)
[2018-12-09] MEDS ORDERED: ONDANSETRON DISINTEGRATING 4 MG TAB PO PRN (22:19)
--- NOTE | 2018-12-09 22:53 | PDGENHP ---
History and Physical - Chief Complaint Shortness of breath - History of Present Illness 83 yo M w/ hx of AF, HTN, CAD, CHF, and anal CA presents with shortness of breath. The patient reports some dyspnea on exertion at baseline. Over the last 2 days he has been increasingly fatigued and also developed a cough with sputum production. Today, while eating, he noticed increased shortness of breath so he came in to the ED for evaluation. He has a mild wheeze on exam. His work-up is fairly unremarkable w/ CT suggestive of mild CHF. He is oxygenating well on RA but remains symptomatic. He thinks a nebulizer treatment was helpful. He is being admitted for observation. Case discussed with Dr. Luna; records reviewed and summarized above. History Information - Allergies/Home Medication List Allergies/Adverse Reactions: No Known Allergies Allergy (Verified 12/09/18 22:29) Home Medications: RX: Aspirin [Aspirin 81mg (*)] 81 mg PO DAILY 02/13/18 [Last Taken 12/09/18 09: 00] RX: Benazepril HCl 5 mg PO DAILY 02/13/18 [Last Taken 12/09/18 09:00] RX: C/E/Zn/Cu/OM3/DHA/EPA/LUT/ZEAX [Preservision Areds 2 Softgel] 1 each PO DAILY 02/13/18 [Last Taken 12/09/18 09:00] RX: Cholecalciferol Vit D3 [Vitamin D3 (*)] 1,000 units PO DAILY 02/13/18 [Last Taken 12/09/18 09:00] RX: Furosemide [Lasix 20 MG (*)] 20 mg PO DAILY 02/13/18 [Last Taken 12/09/18 09 :00] RX: Metoprolol Tartrate [Lopressor 25 mg (*)] 25 mg PO DAILY 02/13/18 [Last Taken 12/09/18 09:00] RX: Sertraline HCl [Zoloft 25mg (*)] 25 mg PO HS 02/13/18 [Last Taken 12/08/18 21:00] RX: Simvastatin [Zocor] 10 mg PO Q2D 02/13/18 [Last Taken 12/07/18 21:00] RX: Simvastatin [Zocor] 20 mg PO Q2D 02/13/18 [Last Taken 12/08/18 21:00] RX: Warfarin Sodium [Coumadin 2MG (*)] 2 mg PO SUMOTUTHSA 02/13/18 [Last Taken 12/08/18 21:00] RX: Dorzolamide HCl/Pf [Dorzolamide 2% Eye Drop] 1 drop EACHEYE BID 06/01/18 [ Last Taken 12/09/18 09:00] Bimatoprost [Bimatoprost] 1 drop EACHEYE HS 12/09/18 [Last Taken 12/08/18 21:00] Carbidopa/Levodopa [Carbidopa-Levodopa 10-100 Tab] 1 each PO BID 12/09/18 [Last Taken 12/09/18 09:00] Cyanocobalamin [Vitamin B12 (*)] 1,000 mcg PO DAILY 12/09/18 [Last Taken 09:00] Melatonin [Melatonin 3 MG (*)] 3 mg PO HS 12/09/18 [Last Taken 12/09/18 21:00] Warfarin Sodium [Coumadin 2MG (*)] 1 mg PO WEFR 12/09/18 [Last Taken 12/07/18 21 :00] I have personally reviewed and updated: family history, medical history - Past Medical History atrial fibrillation, coronary artery disease, cancer, CHF, hypertension - Surgical History Reports: coronary bypass surgery, colectomy, pacemaker/AICD - Family History Positive for: CAD, hypertension, stroke - Social History Smoking Status: Former smoker Review of Systems Review of Systems: ROS: 10pt was reviewed & negative except for what was stated in HPI & below Physical Exam Physical Exam: Temp Pulse Resp BP Pulse Ox 36.4 C 74 23 H 161/73 H 92 12/09/18 19:56 12/09/18 22:16 12/09/18 22:16 12/09/18 22:16 12/09/18 22:16 Constitutional: appears nourished, uncomfortable Eyes: PERRL, EOMI Ears, Nose, Mouth, Throat: moist mucous membranes, no oral mucosal ulcers Cardiovascular: regular rate and rhythym, systolic murmur, JVD, No edema Respiratory: no respiratory distress, expiratory wheeze Gastrointestinal: normoactive bowel sounds, soft, non-tender abdomen Skin: warm, normal color Musculoskeletal: full muscle strength, no muscle tenderness Neurologic: AAOx3, CN II-XII Intact Psychiatric: interacting appropriately, not anxious Lab Data & Imaging Review 12/09/18 20:05 12/09/18 20:05 WBC 5.60 10^3/uL (3.80-9.50) 12/09/18 20:05 RBC 2.92 10^6/uL (4.40-6.38) L 12/09/18 20:05 Hgb 9.6 g/dL (13.7-17.5) L 12/09/18 20:05 Hct 30.9 % (40.0-51.0) L 12/09/18 20:05 MCV 105.8 fL (81.5-99.8) H 12/09/18 20:05 MCH 32.9 pg (27.9-34.1) 12/09/18 20:05 MCHC 31.1 g/dL (32.4-36.7) L 12/09/18 20:05 RDW 18.1 % (11.5-15.2) H 12/09/18 20:05 Plt Count 174 10^3/uL (150-400) 12/09/18 20:05 MPV 10.1 fL (8.7-11.7) 12/09/18 20:05 Neut % (Auto) 73.0 % (39.3-74.2) 12/09/18 20:05 Lymph % (Auto) 14.6 % (15.0-45.0) L 12/09/18 20:05 [place] % (Auto) 9.8 % (4.5-13.0) 12/09/18 20:05 Eos % (Auto) 1.8 % (0.6-7.6) 12/09/18 20:05 Baso % (Auto) 0.4 % (0.3-1.7) 12/09/18 20:05 Nucleat RBC Rel Count 0.0 % (0.0-0.2) 12/09/18 20:05 Absolute Neuts (auto) 4.09 10^3/uL (1.70-6.50) 12/09/18 20:05 Absolute Lymphs (auto) 0.82 10^3/uL (1.00-3.00) L 12/09/18 20:05 Absolute Monos (auto) 0.55 10^3/uL (0.30-0.80) 12/09/18 20:05 Absolute Eos (auto) 0.10 10^3/uL (0.03-0.40) 12/09/18 20:05 Absolute Basos (auto) 0.02 10^3/uL (0.02-0.10) 12/09/18 20:05 Absolute Nucleated RBC 0.00 10^3/uL (0-0.01) 12/09/18 20:05 Immature Gran % 0.4 % (0.0-1.1) 12/09/18 20:05 Immature Gran # 0.02 10^3/uL (0.00-0.10) 12/09/18 20:05 Platelet Estimate ADEQUATE (ADEQ) 12/09/18 20:05 Polychromasia 1+ H 12/09/18 20:05 Hypochromasia 1+ H 12/09/18 20:05 Microcytic Cells 1+ H 12/09/18 20:05 Oval Macrocytes 1+ H 12/09/18 20:05 Elliptocytes 1+ H 12/09/18 20:05 Keratocytes 1+ H 12/09/18 20:05 D-Dimer 0.73 ug/mLFEU (0.00-0.50) H 12/09/18 20:05 Sodium 140 mEq/L (135-145) 12/09/18 20:05 Potassium 4.7 mEq/L (3.5-5.2) 12/09/18 20:05 Chloride 107 mEq/L (97-110) 12/09/18 20:05 Carbon Dioxide 23 mEq/l (22-31) 12/09/18 20:05 Anion Gap 10 mEq/L (6-14) 12/09/18 20:05 BUN 32 mg/dL (7-23) H 12/09/18 20:05 Creatinine 1.3 mg/dL (0.7-1.3) 12/09/18 20:05 Estimated GFR 53 12/09/18 20:05 Glucose 89 mg/dL (70-100) 12/09/18 20:05 Calcium 9.0 mg/dL (8.5-10.4) 12/09/18 20:05 POC Troponin I 0.02 ng/mL (0.00-0.08) 12/09/18 21:45 NT-Pro-B Natriuret Pep 3530 pg/mL (0-450) H 12/09/18 20:05 Imaging Review: Imaging Impressions Chest X-Ray 12/09/18 20:02 Impression: Cardiomegaly post cardiac interventions, with mild features of acute congestive heart failure.. Chest/Thorax CTA 12/09/18 20:46 Impression: 1. Negative CT examination of the chest for acute pulmonary thromboembolic disease. 2. Mild congestive heart failure with small right pleural effusion. 3. Hiatal hernia Results called to Dr. Jean Longoria at 9:20 PM at the time of the interpretation. Visualized and Interpreted EKG results: Yes EKG Interpretation: Positive for: other (V-paced) Assessment & Plan Assessment: 83 yo M w/ hx of AF, HTN, CAD, CHF, and anal CA presents with shortness of breath. Plan: 1. Shortness of breath - Overall this appears mild as patient is oxygenating well on RA. Work-up suggestive of mild CHF and likely viral infection w/ RAD overlying noting active wheezing on admission. CTPE negative for PE, notable for mild CHF features only. - Admit for observation - Lasix 20 mg IV x1 in the morning - Respiratory PCR - Albuterol PRN 2. Chronic systolic HF with mild exacerbation - MPI from 05/08 w/ EF of 43%. Patient takes furosemide 20 mg PO daily. BNP 3530 on admission but this is lower than prior values. - Will repeat TTE noting none in several years - Lasix 20 mg IV x1 - Monitor I/Os, daily weights, cardiac diet 3. Atrial fibrillation - S/p PPM; on warfarin as an outpatient. - Continue warfarin, pharmacy to dose - Monitor daily INR - Monitor on telemetry 4. CAD - S/p CABG in 2002, denies chest pain. - Continue home medications pending reconciliation 5. HTN - Continue home medications pending reconciliation Diet - Cardiac Code - Full Ppx - warfarin, SCDs Dispo - Admit under observation status
[2018-12-10] MEDS: CARBIDOPA/LEVODOPA 10MG/100MG 1 TAB PO SCH ×3 (00:32→21:37)
[2018-12-10] MEDS: SERTRALINE HCL 25 MG TAB PO SCH ×2 (00:35→21:37)
[2018-12-10] MEDS: MELATONIN 3 MG TAB PO PRN ×3 (00:35→21:41)
[2018-12-10] MEDS: WARFARIN SODIUM 2 MG TAB PO SCH ×2 (00:35→15:19)
[2018-12-10 04:18] LABS: PLATELET COUNT 158 10^3/uL (150-400)
[2018-12-10 04:28] LABS: INR 2.27 (0.83-1.16); PROTIME(PATIENT) 23.9 SEC (12.0-15.0)
[2018-12-10] MEDS ORDERED: FUROSEMIDE 20 MG/2 ML VIAL IVP ONE (07:00)
[2018-12-10] MEDS: BENAZEPRIL HCL 10 MG TAB PO SCH (08:05)
[2018-12-10] MEDS: CYANO/VITAMIN B12 1000 MCG TAB PO SCH (08:11)
[2018-12-10] MEDS: ASPIRIN 81 MG CHEWABLE TAB PO SCH (08:11)
[2018-12-10] MEDS: PRESERVISION AREDS2 FORMULA EYE VIT 1 EACH PO SCH (08:11)
[2018-12-10] MEDS: DORZOLAMIDE 2% OPTH DROPS EACHEYE SCH ×2 (08:12→23:34)
[2018-12-10] MEDS ORDERED: ATORVASTATIN CALCIUM 10 MG TAB PO SCH (09:00)
[2018-12-10] MEDS ORDERED: METOPROLOL TARTRATE 25 MG TAB PO SCH (09:00)
[2018-12-10] MEDS ORDERED: IPRATROPIUM/ALBUTEROL 3 ML DEYVIAL IH PRN (10:36)
--- NOTE | 2018-12-10 11:38 | ASMTCMCOM ---
CM Note CM Note Notes: Pts case discussed in tx rounds. Pt is a 83 y/o man admitted for CHF exacerbation. Pt will most likely d/c independent when medically stable. No therapies ordered at this time. CM available for changes. Plan: Independent Date Signed: 12/10/2018 11:33 AM Electronically Signed By:RATNA Lewis
--- NOTE | 2018-12-10 13:43 | HOSPPROG ---
Hospitalist Progress Note Assessment/Plan: 83 yo M w/ hx of AF, HTN, CAD, CHF, and anal CA presents with shortness of breath. Plan: 1. Acute CHF Exacerbation- H of both systolic and diastolic CHF - Overall this appears mild as patient is oxygenating well on RA. Work-up suggestive of mild CHF and likely viral infection w/ RAD overlying noting active wheezing on admission. CTPE negative for PE, notable for mild CHF features only. Pt remains dyspneic on exertion this morning. - CXR/CTA on admission showing mild CHF with small pleural effusion - Lasix 20 mg IV x1 this AM without great effect, will increase to 40 mg IV BID and evaluate response overnight - Respiratory PCR negative on admission - Duonebs PRN 2. Chronic systolic HF - MPI from 05/08 w/ EF of 43%. Patient takes furosemide 20 mg PO daily. BNP 3530 on admission but this is lower than prior values. - Repeat TTE, last one in 2009 - Lasix 20 mg IV x1 - Monitor I/Os, daily weights, cardiac diet 3. Atrial fibrillation - S/p PPM; on warfarin as an outpatient. - Continue warfarin, pharmacy to dose - Monitor daily INR - Monitor on telemetry 4. CAD - S/p CABG in 2002, denies chest pain. - Continue home medications 5. HTN - Continue home medications Diet - Cardiac Code - Full Ppx - warfarin, SCDs Dispo - Pending clinical course Objective: Vital Signs Temp Pulse Resp BP Pulse Ox 36.8 C 85 20 145/89 H 95 12/10/18 11:04 12/10/18 11:04 12/10/18 11:04 12/10/18 11:04 12/10/18 11:04 Microbiology 12/09/18 23:50 Respiratory Panel (PCR) - Final Nasal, Sinus - Swab No Organism Detected By Pcr Laboratory Results 12/10/18 03:00 12/10/18 03:00 12/09/18 12/10/18 12/11/18 05:59 05:59 05:59 Intake Total 550 300 Output Total 200 Balance 350 300 PT 23.9 SEC (12.0-15.0) H 12/10/18 03:00 INR 2.27 (0.83-1.16) H 12/10/18 03:00 ICD10 Worksheet Patient Problems: Problems Problem Status Onset Acute exacerbation of congestive heart failure Acute Pleural effusion, right Acute Atrial fibrillation and flutter Acute Fracture of neck of femur Acute Hypertension Acute Left rib fracture Acute Coronary arteriosclerosis Chronic
--- NOTE | 2018-12-10 14:56 | ECHO ---
[email or web address] [address] Main: [phone] Echocardiography Examination Transthoracic Name: ETHAN ROBERTSON MR#: [id number] Study Date: 12/10/2018 Study Time: 10:50 AM Date of : 1935 Age: 83 year(s) Height: 190.5 cm (75 in.) Weight: 68.04 kg (150 lb.) BSA: 1.94 m2 Gender: Male Examination: Echo Contrast: Image Quality: Adequate Rhythm: Heart Rate: BP: 147 mmHg/86 mmHg Indication: CHF Procedure Staff Referring Physician: Night Guard: Michelle Lyn RDCS Reading Physician: Johnna Shetty MD Requesting Provider: Ordering Physician: Jus Pack Indication: CHF Measurements Chambers AV/MV Label Value Normal Value Label Value Normal Value LVOTd 2.1 cm (1.9cm - 2.1cm) AV PGmean 2 mmHg LVOT VTI 11.5 cm (18cm - 22cm) AV Vmax 0.92 m/s LVDd, 2D 4.3 cm (4.2cm - 5.9cm) JENIFFER (VTI) 2.4 cm2 LVDs, 2D 3.4 cm (2.1cm - 4cm) MV E Vmax 0.71 m/s IVSd, 2D 0.7 cm (0.6cm - 1.1cm) MV A Vmax 0.3 m/s LVPWd, 2D 0.6 cm (0.6cm - 1cm) MV E/A 2.37 LVEF, BP 39 % (55% - 70%) MV E/E' lateral 8.4 LVEF, 2D 44 % (54% - 74%) MV E/E' septal 7.5 (0.45 - 1.25) LVOT PGmean 1 mmHg MV E' septal 0.09 m/s LVOT Vmean 0.37 m/s MV VTI 13.3 cm LA Volume, BP 146 ml (18ml - 58ml) MVA D (continuity eq.) 3 cm2 LADs, 2D 5.1 cm (3cm - 4cm) MV PGmax 3 mmHg LAESV index, BP 75.3 ml/m2 MV PGmean 1 mmHg Additional Vessels MV Jana 3.4 cm Label Value Normal Value MR Vena Contracta 0.6 cm AoAsc 3.4 cm MR Reg. Volume 22 ml AoRoot, MM 3.7 cm (2.2cm - 3.7cm) MR Reg. Fraction 18 % IVC 2.3 cm (1.2cm - 2.3cm) MR Vmax 4.81 m/s MR VTI 166 cm Patient: ETHAN ROBERTSON Study Date: 12/10/2018 Page 1 of 3 10:50 AM MR (ERO) 0.13 cm2 MV E' lateral 0.08 m/s MR PISA Radius 0.5 cm MV E/E' mean 8.35 MR PISA Alias V. 40.8 cm/s MV E' mean 0.08 m/s TV/PV Label Value Normal Value RA Pressure 10 mmHg RVSP 55 mmHg TR Pmax 45 mmHg TR Vmax 3.37 m/s FL End mosley Kun 2.01 cm/s Conclusions 1. the left ventricular systolic function is [id number] reduced. There is inferoseptal hypokinesis and apical dyskinesis. Grade 3 diastolic dysfunction. 2. the right ventricle is normal in size systolic function. ICD /pacer lead noted. 3. the left atrium is severely dilated. 4. Moderate to severe mitral regurgitation. 5. Moderate to severe tricuspid regurgitation with moderate pulmonary hypertension. Estimated RV systolic pressure is 55 mm of mercury. 6. Ppkq-[id number] pulmonic regurgitation. 7. Compared directly to 06/16/2016, LV systolic function is now xezz-kp-zwdttxsvjr reduced with regional wall motion abnormality. The degree of mitral and tricuspid regurgitation are worse. Pulmonary hypertension has progressed. Findings Left Ventricle: Grade III diastolic dysfunction.There is inferoseptal hypokinesis and apical dyskinesis. Mildly to moderately reduced systolic LV function. The ejection fraction, measured by Simpsons method, is 39 %. EF range is estimated at 35 % - 40 %. Right Ventricle: Normal size right ventricle. Right ventricular systolic function is normal. There is a ICD/Pacer wire noted in the right ventricle. Left Atrium: The left atrium is severely dilated. Left Atrium Measurements LA Volume, BP is 146 ml. Right Atrium: The right atrium is mildly dilated. Mitral Valve: Mild mitral annular calcification.. Moderate to severe mitral regurgitation. Aortic Valve: Trivial aortic regurgitation is present. The aortic valve is trileaflet. Tricuspid Valve: Moderate to severe tricuspid regurgitation. Right Ventricular systolic pressure is measured at 55 mmHg. Pulmonary artery pressure is mildly increased. Pulmonic Valve: Mild to moderate pulmonic valve regurgitation is present. Aorta: The aortic root size in M-mode measures 3.7 cm. The ascending aorta measures 3.4 cm. Aorta Measurements Patient: ETHAN ROBERTSON Study Date: 12/10/2018 Page 2 of 3 10:50 AM AoRoot, MM is 3.7 cm. Pericardium: There is a left pleural effusion. Exam Details Procedure Ordered: Echo Procedure Status: Routine study Image Quality: Adequate Facility Location: Cardiac Echo 1 (No Signature Object) Patient: ETHAN ROBERTSON Study Date: 12/10/2018 Page 3 of 3 10:50 AM [id number]
--- NOTE | 2018-12-10 14:59 | PDMN ---
Medical Necessity Medical necessity: MCG M190 Heart Failure, A-2 days: 83 yo w/ SOB likely CHF exacerbation on top of poss viral infection. Initially OBS for workup/tx but pt remains dyspneac beyond obs care, IV Lasix without great effect, pt will require additional MN for ongoing IV diuresis, cont tele monitoring, monitoring I/Os, cont nebs. Change to IP status 12/10/18@1340 per MD order. AF, HTN, CAD, CABG, CHF, and anal CA
[2018-12-10] MEDS: FUROSEMIDE 40 MG/4 ML VIAL IVP SCH (15:20)
--- NOTE | 2018-12-10 18:29 | GCON ---
[f rep st] CONSULTATION PRIMARY VETERINARY TECHNICIAN: Dr. Ricky Koroma. ONCOLOGIST: Dr. Esdras De Jesus. CHIEF COMPLAINT: Shortness of breath. HISTORY OF PRESENT ILLNESS: We were asked by Dr. Alanis to visit with the patient. The patient is a pleasant 83-year-old male with history of coronary disease status post CABG in 2002; permanent atria l fibrillation and AV block with Biotronik pacemaker; ischemic cardiomyopathy, ejection fraction rang ing from 43-50 percent. He also has a history of carotid disease status post left CEA, hypertension, prostate cancer, recurrent anal cancer status post colostomy. Yesterday evening while eating dinner he became acutely short of breath. He felt anxious as well. N o angina. Because his dyspnea was ongoing, he presented to the ER and was found to be in mild heart failure based on exam and imaging studies. He has responded well to IV Lasix and reports feeling muc h better upon my evaluation. He has not had angina. He notices intermittent palpitations, but this is his usual. He has not had significant lower extremity edema. No recent syncope but has had a past history of syncope and falls . REVIEW OF SYSTEMS: A full 10-point review of systems is performed and is negative except that which is outlined above. ALLERGIES: No known drug allergies. PAST MEDICAL HISTORY: 1. Coronary disease with history of CABG in 2002. Anatomy is not known at this time. No stents sin ce then. 2. Atrial fibrillation and complete AV block with Biotronik pacemaker. 3. Ischemic cardiomyopathy. 4. Valvular heart disease with mitral and tricuspid regurgitation that have been progressive since l ast echo, now [id number]-ar-dhzxcs. 5. Hypertension. 6. Prostate cancer status post radiation therapy. 7. History of recurrent anal cancer status post resection and colostomy with Dr. Damian. 8. Left CEA. 9. 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 10. Chronic anemia. 11. DVT. OUTPATIENT MEDICATIONS: Metoprolol 25 mg daily, Zocor 10 mg daily, Tylenol p.r.n., aspirin 81 mg durga ly, benazepril 5 mg daily, bimatoprost eyedrops, vitamin D3, Lasix 20 mg daily, melatonin, Zoloft, an d warfarin per INR. SOCIAL HISTORY: The patient lives alone. He quit smoking 40 years ago. He drinks alcohol in modera tion. FAMILY HISTORY: Not applicable to the current case. PHYSICAL EXAM: VITAL SIGNS: Blood pressure 156/80. Heart rate has been in the 60s to mid 80s. Oxy gen saturation is 94% on room air. He is afebrile. GENERAL: Elderly, somewhat frail gentleman in n o acute distress. HEENT: Dentition is poor. Sclerae nonicteric. Mucous membranes are slightly dry . Normocephalic, atraumatic. CARDIOVASCULAR: JVP is 12-14 cm of water with the patient lying at 30 degrees. Irregular regular rhythm with a soft holosystolic murmur at the left lower sternal border and at the apex. No S3. LUNGS: Clear to auscultation without wheezes, rhonchi, or rales. ABDOMEN: Soft, nontender, nondistended. Colostomy bag noted. No obvious masses. EXTREMITIES: Trace bilat eral lower extremity edema to the midshin. NEUROLOGIC: Alert and oriented x3 without gross focal ne urologic deficits. Appropriate mood and affect. LABORATORY DATA: White count 6.9, hematocrit 30, platelets 158. INR 2.27. D-dimer 0.73. Sodium 13 9, potassium 4.5, chloride 107, bicarb 24, BUN 31, creatinine 1.2. BNP 3530. Troponin negative. La st BNP was 5300, this was in 2016. EKG reviewed by me: Atrial fibrillation with ventricular pacing. Chest x-ray: Cardiomegaly. Mild CHF. Chest CT: No pulmonary embolism. Mild CHF and small right pleural effusion. Echocardiogram reviewed by me: Vvkw-hw-uienfhwoui reduced LV systolic function. Ejection fraction 3 5-40 percent. Inferoseptal hypokinesis and apical dyskinesis. Severe left atrial dilation. Moderat e-to-severe MR, prmhqioq-ea-wgvmip TR with estimated PA pressure 55 mmHg. Compared with May 2016 , LV systolic function is worse, pulmonary hypertension has progressed and the degree of mitral tricu spid regurgitation has progressed. Myocardial perfusion stress test in our office in April 2018 shows patchy apical defect, possibly consistent with RV pacing. No definite ischemia. Ejection fraction 43%. Pacer check 11/19/2018 shows normal device function, underlying atrial fibrillation with complete hea rt block and 99% RV pacing. ASSESSMENT/PLAN: 83-year-old male with complex cardiac history as detailed above. Now presents with mild decompensated heart failure. He has clinically improved significantly with IV Lasix. Not havi ng chest pain. Troponin negative. 1. Xsgmw-zp-yvmhoft systolic heart failure: Ejection fraction is slightly lower based on a slightly lower than MPI ejection fraction in April of 2018 and also lower than 2016 echo. Unclear trigge r for his decompensation other than progressive valvular disease. Doubt ischemia, although he does h ave some inferoseptal wall motion abnormality that does appear new as well. Agree with IV Lasix and Toprol and benazepril. I had a long discussion with the patient about how aggressive he would like t o be with his cardiology evaluation. We agreed to intensify medical management with diuretics, asses s how he is feeling prior to considering coronary angiography and YAMILKA. Other consideration for his c ardiomyopathy may be chronic RV pacing. 2. Coronary disease: Troponin negative. No chest pain. No definite ischemia. Nuclear stress test 6 months ago. Continue medical management. He is on statin, aspirin as well as beta-yudelka and AC E inhibitor. 3. Permanent atrial fibrillation: Normal recent pacemaker function. Continue warfarin for a CHADS2 -VASc score of 5. As mentioned, it is possible that chronic RV pacing has contributed to some of his heart failure. We will see how he does with intensified diuresis but may need consideration for Bi V upgrade. 4. Hypertension: Continue outpatient medical therapy. 5. Vascular disease. History of left CEA: Continue statin, aspirin. 6. Anemia: He is at his baseline. Thank you for allowing us to participate in the patient's care. We will follow with you. /[id number]/MODL
[2018-12-10] MEDS ORDERED: BIMATOPROST 0.01% 2.5 ML OPHT.BTL EACHEYE SCH (21:00)
[2018-12-10] MEDS ORDERED: BIMATOPROST 0.03% EACHEYE SCH (22:15)
[2018-12-11 03:54] LABS: INR 2.13 (0.83-1.16); PROTIME(PATIENT) 22.8 SEC (12.0-15.0)
[2018-12-11] MEDS: FUROSEMIDE 40 MG/4 ML VIAL IVP SCH (08:10)
[2018-12-11] MEDS: CARBIDOPA/LEVODOPA 10MG/100MG 1 TAB PO SCH (08:13)
[2018-12-11] MEDS: CYANO/VITAMIN B12 1000 MCG TAB PO SCH (08:13)
[2018-12-11] MEDS: BENAZEPRIL HCL 10 MG TAB PO SCH (08:13)
[2018-12-11] MEDS: ASPIRIN 81 MG CHEWABLE TAB PO SCH (08:14)
[2018-12-11] MEDS: PRESERVISION AREDS2 FORMULA EYE VIT 1 EACH PO SCH (08:14)
[2018-12-11] MEDS: DORZOLAMIDE 2% OPTH DROPS EACHEYE SCH (08:16)
[2018-12-11 08:21] VITALS: BP 149/74
[2018-12-11] MEDS ORDERED: BENAZEPRIL HCL 10 MG TAB PO ONE (09:00)
[2018-12-11] MEDS ORDERED: PRAVASTATIN SODIUM 20 MG TAB PO SCH (09:00)
[2018-12-11] MEDS ORDERED: ATORVASTATIN CALCIUM 10 MG TAB PO SCH (09:00)
[2018-12-11] MEDS ORDERED: METOPROLOL SUCCINATE XR 25 MG TAB PO SCH (09:00)
--- NOTE | 2018-12-11 09:56 | PDCARPN ---
Cardiology Progress Note Assessment/Plan: Assessment/Plan: 83-year-old male with coronary disease status post CABG in 2002, ischemic cardiomyopathy with ejection fraction this admission of 30/5 to 40%. He has valvular heart disease with moderate to severe mitral and moderate to severe tricuspid regurgitation as well as moderate pulmonary hypertension. Other history includes permanent atrial fibrillation with complete heart block and a Biotronik pacemaker. He was admitted on 12 09 with decompensated heart failure. He has improved with IV Lasix. No evidence of acute coronary syndrome. 1. Acute on chronic decompensated systolic heart failure: Ejection fraction slightly lower than his baseline. Etiology includes chronic RV pacing, progressive valvular disease, ischemia. I think the 1st is most likely. I have discussed the case with Dr. Carrion. Plan for upgrade of his pacemaker to a biventricular/THIRD COOK-P device sometime next week. The patient is in agreement. We discussed that this would hopefully improve quality of life without being overly invasive. Furthermore, improvement in LV dyssynchrony and ejection fraction should help his valvular regurgitation. Transition to oral Lasix. Increase benazepril. Continue Toprol. 2. Coronary disease with history of CABG: He did have a nonischemic nuclear stress test in our office in April 2018. Troponin negative here. No angina. Continue medical management. 3. Valvular heart disease: As detailed above. This may improve with diuresis and THIRD COOK-P. Follow as an outpatient. 4. Atrial fibrillation with pacer dependence: He is anticoagulated with warfarin for CHADS2 Vasc score of 5. Upgrade to Bi V device as detailed above. 5. Hypertension: Suboptimally controlled. Continue Toprol. Increase benazepril to 10 mg daily. May need more beta-blockers as an outpatient. He appears stable for discharge from a cardiac standpoint. Follow up with EP. The EP Service will arrange his pacemaker upgrade procedure. 12/11/18 09:52 Subjective: Chema feels better. Less dyspnea. No angina. Reviewed/Discussed With: other (Dr. Carrion) Objective: Vital Signs (8 Hrs) Temp Pulse Resp BP Pulse Ox 12/11/18 08:00 36.5 C 58 L 18 149/74 H 93 12/11/18 03:16 36.4 C 88 16 142/76 H 94 Intake/Output (24 Hrs) 12/10/18 12/11/18 12/12/18 05:59 05:59 05:59 Intake Total 800 Output Total 1450 Balance -650 Intake: Oral (ml) 800 Output: Urine (ml) 1450 Urinal 1450 Other: Weight 67.2 kg Number of Voids Incontinence 2 Number of Stools Urinal 1 No acute distress. JVP less than 10. Regular rate and rhythm with soft holosystolic murmur at the apex and left lower sternal border. No S3. Lungs clear to auscultation bilaterally without wheeze rhonchi rales No lower extremity edema Result Diagrams: 12/10/18 03:00 12/11/18 03:00 Telemetry: Atrial fibrillation with ventricular pacing occasional PVC ICD10 Worksheet Patient Problems: Problems Problem Status Onset Coronary arteriosclerosis Chronic Fracture of neck of femur Acute Atrial fibrillation and flutter Acute Hypertension Acute Left rib fracture Acute Acute exacerbation of congestive heart failure Acute Pleural effusion, right Acute
--- NOTE | 2018-12-11 11:25 | ASMTLACE ---
LACE Length of stay for Answers: 2 days current admission Acuity / Level of Answers: Yes Care: Did the patient have an inpatient admission? Comorbidities - select Answers: Chronic pulmonary disease all that apply Congestive heart failure Coronary Artery Disease Other Notes: AFib; DVT; HTN # of Emergency department Answers: 1-2 visits in the last 6 months Score: 13 Date Signed: 12/11/2018 11:24 AM Electronically Signed By:RATNA Lewis
--- NOTE | 2018-12-11 11:34 | ASMTDCNOTE ---
Case Management Discharge Discharge Order Complete? Answers: Yes Patient to Obtain Answers: Independently Medications Transportation Arranged Answers: Family/Friends EMTALA Complete Answers: No Case Management Transport Answers: No Form Complete Faxed Final Orders Answers: Yes Agency/Facility Transfer Answers: Yes Report Printed & Faxed to Receiving Agency Family Notified Answers: No Discharge Comments Notes: Pts case discussed in tx rounds. Pt is being d/c'd today. PT is recommending HC. CM met w/ pt for dispo planning. Pt reports that he just finished w/ HC through [facility]? Pt is unable to fully remember the agency. Pt was okay for CM to make another HC referral if CM is unable to find [facility]. Referral sent to [facility] and they are able to accept. DC orders sent. CM available for changes. Plan: [facility]; PT, RN Date Signed: 12/11/2018 11:33 AM Electronically Signed By:RATNA Lewis
--- NOTE | 2018-12-11 11:35 | PDIAF ---
- Diagnosis Diagnosis: CHF Code Status: Full Code - Medication Management Discharge Medications: electronically signed and located in the Home Medication List. - Orders Services needed: Home Care, Registered Nurse, Physical Therapy, Occupational Therapy Home Care Face to Face: I certify that this patient was under my care and that I had the required [id number]-[id number] encounter meeting the encounter requirements on the discharge day. My findings support the fact that the patient is homebound as defined in Home Care Face to Face Continued: CMS Chapter 7 Medicare Benefits Manual 30.1.1 , The condition of the patient is such that there exists a normal inability to leave home and consequently, leaving home would require a considerable and taxing effort. Isolation Type: None Diet Recommendation: no restrictions on diet Weigh Patient: daily Additional Instructions: The EP Service will arrange for upgrade to biventricular pacing with Dr. Carrion. They will schedule this directly with the patient. - Labs/Radiology BMP Date: 12/17/18 - Follow Up Care Current Providers and Referrals: Anne Espinoza MD [Primary Care Provider] - As per Instructions Robert Carrion MD [Medical Doctor] -
--- NOTE | 2018-12-11 11:42 | GDS ---
[f rep st] DISCHARGE SUMMARY DIAGNOSES: 1. Acute on chronic systolic congestive heart failure. 2. Atrial fibrillation with pacemaker. 3. Coronary artery disease, status post coronary artery bypass graft. 4. Hypertension. 5. Valvular heart disease. HISTORY: The patient is an 83-year-old male, with ischemic cardiomyopathy, ejection fraction 35% to 40%. He had a CABG in 2002. He recently had a negative nuclear stress test in the cardiology office April 2018. He presents with shortness of breath and was found to be in congestive heart failur e exacerbation. He was seen with Cardiology. His ejection fraction on echo is slightly lower than i t has been in the past. I think this is probably due to his chronic RV pacing. Case was discussed w duyen Carrion, plan is to upgrade his pacemaker to a biventricular device next week. In the mean time, his oral Lasix will be increased, as well as increasing his benazepril. With a dose of IV Lasix her e, he is doing much better and feeling ready to go home. DISCHARGE MEDICATIONS: Please see computerized record for full detailed list. New medications: 1. Benazepril increased to 10 mg p.o. daily. 2. Metoprolol changed to succinate XR 25 mg p.o. daily. 3. Lasix increased to 40 mg p.o. b.i.d. ADDITIONAL DISCHARGE INSTRUCTIONS: The EP service will arrange for upgrade to biventricular pacing w duyen Carrion to be to schedule directly with the patient. Greater than 30 minutes' time spent arranging this discharge. Patient was seen and examined by me on the day of discharge. /[id number]/MODL
--- NOTE | 2018-12-11 11:42 | ASDISCHSUM ---
Discharge Information Plan Status:Home with Home Health Medically Cleared to Leave:12/11/2018 Discharge Date:12/11/2018 CM D/C Disposition: ADT D/C Disposition:Home, Routine, Self-Care Projected Discharge Date:12/11/2018 11:00 AM Transportation at D/C: Discharge Delay Reason: Follow-Up Date:12/11/2018 11:00 AM Discharge Slot: Final Diagnosis: Placement Information Referral Type:*Home Health Care Services Referral ID:[id number] Provider Name:[facility] (formerly [facility]) [address] Address 2: City:[place] Selection Factors: State:[place] Patient Contact Information Contact Name:GADIELDebi Relationship:Friend Address: City:[place] Alternate Phone: State/Zip Code:[place] [address] Email: Financial Information Financial Class:Medicare Primary Plan Desc:MEDICARE INPATIENT Primary Plan Number:[id number] Secondary Plan Desc:[employer] Secondary Plan Number:[id number] Assessment Information [facility] CM Progress Note CM Note CM Note Notes: Pts case discussed in tx rounds. Pt is a 83 y/o man admitted for CHF exacerbation. Pt will most likely d/c independent when medically stable. No therapies ordered at this time. CM available for changes. Plan: Independent Date Signed: 12/10/2018 11:33 AM Electronically Signed By:RATNA Lewis LACE LACDebi Length of stay for Answers: 2 days current admission Acuity / Level of Answers: Yes Care: Did the patient have an inpatient admission? Comorbidities - select Answers: Chronic pulmonary disease all that apply Congestive heart failure Coronary Artery Disease Other Notes: AFib; DVT; HTN # of Emergency department Answers: 1-2 visits in the last 6 months Score: 13 Date Signed: 12/11/2018 11:24 AM Electronically Signed By:RATNA Lewis Case Management Discharge Plan Note Case Management Discharge Discharge Order Complete? Answers: Yes Patient to Obtain Answers: Independently Medications Transportation Arranged Answers: Family/Friends EMTALA Complete Answers: No Case Management Transport Answers: No Form Complete Faxed Final Orders Answers: Yes Agency/Facility Transfer Answers: Yes Report Printed & Faxed to Receiving Agency Family Notified Answers: No Discharge Comments Notes: Pts case discussed in tx rounds. Pt is being d/c'd today. PT is recommending HC. CM met w/ pt for dispo planning. Pt reports that he just finished w/ HC through [facility]? Pt is unable to fully remember the agency. Pt was okay for CM to make another HC referral if CM is unable to find [facility]. Referral sent to [facility] and they are able to accept. DC orders sent. CM available for changes. Plan: [facility]; PT, RN Date Signed: 12/11/2018 11:33 AM Electronically Signed By:RATNA Lewis Intervention Information Intervention Type:*NULL-Signed Date of Service:12/10/2018 01:52 PM Patient Type:Observation Staff Member:Trena Pike Hours: Discipline: Severity: Comment:
[2018-12-11] MEDS ORDERED: FUROSEMIDE 40 MG TAB PO SCH (15:00)
[2018-12-12] MEDS ORDERED: BENAZEPRIL HCL 10 MG TAB PO SCH (09:00)
[2018-12-12] MEDS ORDERED: WARFARIN SODIUM 2 MG TAB PO SCH (16:00)
--- NOTE | 2018-12-14 18:00 | CPEKG ---
Test Reason : OPEN Blood Pressure : / mmHG Vent. Rate : 076 BPM Atrial Rate : 081 BPM P-R Int : 055 ms QRS Dur : 162 ms QT Int : 444 ms P-R-T Axes : 000 -82 101 degrees QTc Int : 500 ms Afib/flut and V-paced complexes Confirmed by Jean Longoria ([id number]) on 12/14/2018 6:00:07 PM Referred By: Rivas Luna Confirmed By:Jean Longoria
== END 2018-12-11 13:06 | disposition home or self-care (01) | DRG 293 ==
LOC: F2W 22:55 → OBSVTOIN 12-10 13:40
PROVIDERS: ADMIT Student in an Organized Health Care Education/Training Program; ATTEND Internal Medicine
DX: I11.0 Hypertensive heart disease with heart failure (principal); I50.23 Acute on chronic systolic (congestive) heart failure; I25.10 Atherosclerotic heart disease of native coronary artery without angina pectoris; I48.2 Chronic atrial fibrillation; J44.9 Chronic obstructive pulmonary disease, unspecified; I08.1 Rheumatic disorders of both mitral and tricuspid valves; G20 Parkinson's disease; Z95.810 Presence of automatic (implantable) cardiac defibrillator; Z96.649 Presence of unspecified artificial hip joint; Z85.048 Personal history of other malignant neoplasm of rectum, rectosigmoid junction, and anus; Z85.46 Personal history of malignant neoplasm of prostate; Z93.3 Colostomy status; Z87.891 Personal history of nicotine dependence; Z95.1 Presence of aortocoronary bypass graft
CPT/HCPCS: 84484-ER; 97116-GP; 97161-GP; G0378; J1940; J7613; Q9967

== ENCOUNTER → 2018-12-31 | Day surgery (SDC) | payer OTHER | LOC: FCATH 09:00 ==

== ENCOUNTER 2019-01-08 08:17 | Observation (INO) | payer OTHER ==
[2019-01-08] MEDS ORDERED: diphenhydrAMINE 25 MG CAP PO ONE ×2 (08:21→09:26)
[2019-01-08] MEDS ORDERED: BACITRACIN IRRIGATION/NS 50,000 UNITS/1,000 ML BTL IRR ONE (08:21)
[2019-01-08] MEDS ORDERED: DIAZEPAM 5 MG TAB PO ONE (08:21)
[2019-01-08] MEDS ORDERED: NS 1,000 ML IV ONE (08:21)
[2019-01-08] MEDS ORDERED: ceFAZolin 2 GM/DEXTROSE 100 ML IV ONE (08:21)
--- NOTE | 2019-01-08 08:55 | PDGENHP ---
History & Physical Chief Complaint: chf Relevant Physical Exam: s1s2 rrr cta ao3 Cardiorespiratory Assessment: for upgrade to biv pacemaker
[2019-01-08 09:12] LABS: PLATELET COUNT 166 10^3/uL (150-400)
[2019-01-08 09:27] LABS: INR 1.3 (0.83-1.16); PROTIME(PATIENT) 15.6 SEC (12.0-15.0)
[2019-01-08] MEDS ORDERED: IOPAMIDOL (ISOVUE-300) 100 ML BTL ONE (10:32)
[2019-01-08] MEDS ORDERED: BUPIVACAINE 0.5% 30 ML SDV ONE (10:32)
--- NOTE | 2019-01-08 10:41 | PDANEPAE ---
ANE History of Present Illness cardiomyopathy - BI-v Pacer ANE Past Medical History - Cardiovascular History Hx Hypertension: Yes Hx Arrhythmias: Yes Hx Chest Pain: No Hx Coronary Artery / Peripheral Vascular Disease: Yes Hx CHF / Valvular Disease: No Hx Palpitations: No Cardiovascular History Comment: aortic aneurysm. afib - chronic. pacemaker for complete heart block. cardiomyopathy. CAD s/p CABG in 2000. htn. hyperlipidemia. pvd. hx of cabg. followed by [facility] - Pulmonary History Hx COPD: No Hx Asthma/Reactive Airway Disease: Yes Hx Recent Upper Respiratory Infection: No Hx Oxygen in Use at Home: No Hx Sleep Apnea: Yes Pulmonary History Comment: hx of ЕЛЕНА, pt denies dx or using cpap. no ER visits for RAD, uses inhaler 1-2/d - Neurologic History Hx Cerebrovascular Accident: No Hx Seizures: No Hx Dementia: No Neurologic History Comment: hx of intracerebral hemorrage - Endocrine History Hx Diabetes: No Hypothyroid: No Hyperthyroid: No Obesity: no - Renal History Hx Renal Disorders: No Renal History Comment: h/o Prostate CA. CRI - Liver History Hx Hepatic Disorders: No - Neurological & Psychiatric Hx Hx Neurological and Psychiatric Disorders: Yes Neurological / Psychiatric History Comment: depression. anxiety - Cancer History Hx Cancer: Yes Cancer History Comment: rectal ca. Prostate-radiation seeds 1999. Basal cell top of head-removed - Congenital Disorder History Hx Congenital Disorders: No - GI History GERD: no Hx Gastrointestinal Disorders: Yes Gastrointestinal History Comment: rectal CA - Other Health History Other Health History: macular degeneration. wears glasses - Chronic Pain History Chronic Pain: No - Surgical History Prior Surgeries: 02/16/18 rectal mass excision with Srini. 02/17/15 left CEA with Dayron. 06/27/14 rectal exam with excision of anal CA with Srini. right TANK with Shoshana. 2004-remove DVT R leg. 11/30/09 EP study/ ablation with Murali. Bilateral cataracts. 2002-4 vessel CABG ANE Review of Systems Review of Systems: - Exercise capacity Exercise capacity: <4 METS - Pacemaker Date Pacemaker Last Checked: 05/04/18 ANE Patient History - Allergies Allergies/Adverse Reactions: No Known Allergies Allergy (Verified 12/09/18 22:29) - Home Medications Home Medications: C/E/Zn/Cu/OM3/DHA/EPA/LUT/ZEAX [Preservision Areds 2 Softgel] 1 each PO DAILY [Last Taken 01/07/19] Cholecalciferol Vit D3 [Vitamin D3 (*)] 1,000 units PO DAILY 02/13/18 [Last Taken 01/07/19] Sertraline HCl [Zoloft 25mg (*)] 25 mg PO HS 02/13/18 [Last Taken 01/07/19] Simvastatin [Zocor] 10 mg PO Q2D 02/13/18 [Last Taken 01/06/19] Simvastatin [Zocor] 20 mg PO Q2D 02/13/18 [Last Taken 01/07/19] Warfarin Sodium [Coumadin 2MG (*)] 2 mg PO SUMOTUTHSA 02/13/18 [Last Taken 01/06] Dorzolamide HCl/Pf [Dorzolamide 2% Eye Drop] 1 drop EACHEYE BID 06/01/18 [Last Taken 01/07/19] Bimatoprost 1 drop EACHEYE HS 12/09/18 [Last Taken 01/07/19] Carbidopa/Levodopa [Carbidopa-Levodopa 10-100 Tab] 1 each PO BID 12/09/18 [Last Taken 01/07/19] Cyanocobalamin [Vitamin B12 (*)] 1,000 mcg PO DAILY 12/09/18 [Last Taken ] Melatonin [Melatonin 3 MG (*)] 3 mg PO HS 12/09/18 [Last Taken 01/07/19] Warfarin Sodium [Coumadin 2MG (*)] 1 mg PO WEFR 12/09/18 [Last Taken 01/04/19] Furosemide [Lasix 40 MG (*)] 30 mg PO BID@0900,1500 01/08/19 [Last Taken ] - NPO status NPO Status: no food or drink >8 hours - Smoking Hx Smoking Status: Former smoker - Family Anes Hx Family Hx Anesthesia Complications: none ANE Labs/Vital Signs - Labs Result Diagrams: 01/08/19 08:55 01/08/19 08:55 - Vital Signs Height: 172.72 cm Weight: 68.039 kg ANE Physical Exam - Airway Mallampati Score: Class 2 Mouth exam: normal dental/mouth exam - Pulmonary Pulmonary: no respiratory distress - Cardiovascular Cardiovascular: regular rate and rhythym - ASA Status ASA Status: III ANE Anesthesia Plan Anesthesia Plan: GA with mask, MAC
[2019-01-08] MEDS ORDERED: fentaNYL 100 MCG/2 ML INJ ONE (10:42)
[2019-01-08] MEDS ORDERED: LIDOCAINE 2% 2 ML INJ ONE (10:42)
[2019-01-08] MEDS ORDERED: PROPOFOL/EMULSION 500 MG/50 ML BOTTLE IV ONE ×2 (10:42→11:36)
[2019-01-08] MEDS ORDERED: LIDOCAINE 1% 300 MG/30 ML SDV ONE (11:04)
[2019-01-08] MEDS ORDERED: PHENYLEPHRINE HCL 100 MCG/ML SYR ONE (11:15)
[2019-01-08] MEDS ORDERED: ONDANSETRON 4 MG/2 ML VIAL IVP PRN (12:42)
[2019-01-08] MEDS ORDERED: NALOXONE HCL 0.4 MG/ML INJ IVP PRN (12:42)
[2019-01-08] MEDS ORDERED: ALBUTEROL 3 ML DEYVIAL IH PRN (12:42)
[2019-01-08] MEDS ORDERED: fentaNYL 100 MCG/2 ML INJ IVP PRN (12:42)
--- NOTE | 2019-01-08 12:43 | POSTANESTH ---
Post Anesthetic Evaluation Cardiovascular Status: Normal, Stable Respiratory Status: Normal, Stable Level of Consciousness/Mental Status: Can Participate in Eval Pain Control: Adequate, Prn Tx Ordered Nausea/Vomiting Control: Adequate, Prn Tx Ordered Complications Possibly Related to Anesthesia: None Noted
[2019-01-08] MEDS: FUROSEMIDE 20 MG TAB PO SCH (15:33)
[2019-01-08] MEDS ORDERED: WARFARIN SODIUM 2 MG TAB PO SCH (16:00)
[2019-01-08] MEDS: ACETAMINOPHEN 325 MG TAB PO PRN (20:48)
[2019-01-08] MEDS: DORZOLAMIDE 2% OPTH DROPS EACHEYE SCH (20:48)
[2019-01-08] MEDS ORDERED: BIMATOPROST 0.03% EACHEYE SCH (21:00)
[2019-01-08] MEDS ORDERED: MELATONIN 3 MG TAB PO SCH (21:00)
[2019-01-08] MEDS ORDERED: SERTRALINE HCL 25 MG TAB PO SCH (21:00)
[2019-01-08] MEDS: CARBIDOPA/LEVODOPA 10MG/100MG 1 TAB PO SCH (22:30)
[2019-01-08] MEDS ORDERED: GABAPENTIN 100 MG CAP PO ONE (23:30)
[2019-01-09 04:50] LABS: PLATELET COUNT 152 10^3/uL (150-400)
[2019-01-09] MEDS: CARBIDOPA/LEVODOPA 10MG/100MG 1 TAB PO SCH (08:38)
[2019-01-09] MEDS: FUROSEMIDE 20 MG TAB PO SCH (08:39)
[2019-01-09] MEDS: DORZOLAMIDE 2% OPTH DROPS EACHEYE SCH (08:40)
[2019-01-09] MEDS ORDERED: ATORVASTATIN CALCIUM 10 MG TAB PO SCH (09:00)
[2019-01-09] MEDS ORDERED: PRESERVISION AREDS2 FORMULA EYE VIT 1 EACH PO SCH (09:00)
[2019-01-09] MEDS ORDERED: METOPROLOL SUCCINATE XR 25 MG TAB PO SCH (09:00)
[2019-01-09] MEDS ORDERED: CHOLECALCIFEROL VIT D3 1,000 UNITS TAB PO SCH (09:00)
[2019-01-09] MEDS ORDERED: CYANO/VITAMIN B12 1000 MCG TAB PO SCH (09:00)
[2019-01-09] MEDS ORDERED: BENAZEPRIL HCL 10 MG TAB PO SCH (09:00)
[2019-01-09] MEDS: ACETAMINOPHEN 325 MG TAB PO PRN (10:15)
[2019-01-09 10:56] VITALS: BP 122/70
--- NOTE | 2019-01-09 11:46 | GDS ---
[f rep st] DISCHARGE SUMMARY SUPERVISING SENIOR JAVA UI DEVELOPER: Robert Carrion MD. ADMISSION DIAGNOSES: Cardiomyopathy, congestive heart failure. DISCHARGE DIAGNOSES: Cardiomyopathy and congestive heart failure, status post upgrade to a biventric ular permanent pacemaker. HOSPITAL COURSE: Patient presented 01/08/2019, for upgrade to a biventricular permanent pacemaker in the setting of symptomatic decompensated congestive heart failure and cardiomyopathy. He underwent successful upgrade to a biventricular permanent pacemaker without any intra-procedure complications. He has done very well in the postprocedure setting, and he is appropriate and stable for discharge h ome today. PHYSICAL EXAMINATION: GENERAL: Alert and oriented x4. No apparent distress. VITAL SIGNS: Blood p ressure 122/70, heart rate 74, respiratory rate 12, SpO2 97% on room air, temp 36.6 degrees Celsius. RESPIRATORY: Lungs are clear to auscultation without adventitious breath sounds. ABDOMEN: Normoac tive bowel sounds times all 4 quadrants. No masses or tenderness. Soft to palpation. SKIN: [place], warm, dry without cyanosis, clubbing, or peripheral edema. Left pectoral incision has a clean and dr y dressing in place without evidence of oozing, redness, or erythema from this site. No evidence of hematoma to his left pectoral pacemaker pocket. EXTREMITIES: Pulses 2+ bilaterally, normal range of motion, normal exam. LABORATORY STUDIES: Drawn today demonstrates stable CBC and BMP compared to preprocedure. PROCEDURES PERFORMED DURING HOSPITALIZATION: Upgrade to biventricular permanent pacemaker as mention ed above. Device interrogation this morning demonstrates stable impedance and thresholds. Chest x-r ay this morning demonstrates stable lead positioning. DISCHARGE DISPOSITION: Patient will be discharged home in stable condition. He is under activity in structions as below. DISCHARGE MEDICATIONS: Please see discharge medication reconciliation sheet for full details. Araceli salamanca note that no medication changes were made during this hospitalization. DISCHARGE INSTRUCTIONS: 1. Post pacemaker instructions were reviewed with patient in detail. We discussed activity restrict ions including lifting more than 5 pounds, avoidance of pushing, pulling, or putting his arm above th e level of the shoulder or behind his back for the next 4 weeks. He will avoid vigorous upper body e xertion with his left arm for the next 6 weeks. 2. We reviewed wound care for his left pectoral incision site. 3. He will have his darin removed at our device clinic in 1 week. At the time of discharge, patient verbalized understanding regarding all discharge instructions witho ut questions or concerns. He has a followup visit scheduled with our device clinic in 1 week. He wi ll follow up with our EP team within the next 4 weeks. He will contact [facility] with any new or concerning symptoms prior to his upcoming visit. Time spent on discharge greater than 30 minutes. /[id number]/MODL
--- NOTE | 2019-01-09 12:19 | ASDISCHSUM ---
Discharge Information Plan Status:Home with No Needs Medically Cleared to Leave:01/09/2019 Discharge Date:01/09/2019 CM D/C Disposition:Home, Routine, Self-Care ADT D/C Disposition:Home, Routine, Self-Care Projected Discharge Date:01/09/2019 Transportation at D/C: Discharge Delay Reason: Follow-Up Date:01/09/2019 Discharge Slot: Final Diagnosis: Placement Information Patient Contact Information Contact Name:SUSANKELSEYTALIB Relationship:Po Address: City:[place] Alternate Phone: State/Zip Code:[place] [address] Email: Financial Information Financial Class:Medicare Primary Plan Desc:MEDICARE OUTPATIENT Primary Plan Number:[id number] Secondary Plan Desc:[place] [employer] Secondary Plan Number:[id number] Assessment Information LACE LACE Length of stay for Answers: Less than 1 day current admission Acuity / Level of Answers: No Care: Did the patient have an inpatient admission? Comorbidities - select Answers: Chronic pulmonary disease all that apply Congestive heart failure Coronary Artery Disease Peripheral vascular disease Other Notes: HTN; AFib; DVT # of Emergency department Answers: 1-2 visits in the last 6 months Social determinants Answers: Mental health diagnosis (anxiety, depression, pers onality disorders, etc.) Score: 12 Date Signed: 01/09/2019 12:18 PM Electronically Signed By:Yamile Reed RN Intervention Information Intervention Type:*[place]IL[place]-Signed Date of Service:01/09/2019 09:33 AM Patient Type:Observation Staff Member:Trena Pike Hours: Discipline: Severity: Comment:
[2019-01-09] MEDS ORDERED: WARFARIN SODIUM 2 MG TAB PO SCH (16:00)
[2019-01-10] MEDS ORDERED: PRAVASTATIN SODIUM 20 MG TAB PO SCH (09:00)
== END 2019-01-09 12:37 | disposition home or self-care (01) ==
LOC: FCATH 08:17 → F2W 12:45
PROVIDERS: ADMIT Internal Medicine Cardiovascular Disease; ATTEND Internal Medicine Cardiovascular Disease
DX: I42.9 Cardiomyopathy, unspecified (principal); I44.2 Atrioventricular block, complete; I11.0 Hypertensive heart disease with heart failure; I50.23 Acute on chronic systolic (congestive) heart failure
CPT/HCPCS: 33225; 33228; 71045; 71046; C1769; C1900; C2621; J0690; J2370; J2704; J3010; Q9967